=== PATIENT | female | born 1950 | race Two or more races ===

== ENCOUNTER 2017-01-12 07:37 | Emergency (ER) | payer OTHER ==
[~2017-01-12] VITALS: Ht 144.8 cm; Wt 46.3 kg
[~2017-01-12 07:37] MED LIST: DILT60CA; HYDR500T13; LEVO100T8; LORA1TAB12; PROVENTIL; SIMV-13
[2017-01-12 08:34] LABS: Basophils # (auto) 0 uL; Basophils % (auto) 0.6 % (0.0-2.0); CONDITION Y; Eosinophils # (auto) 0.1 uL; Eosinophils % (auto) 1.2 % (0.0-7.0); Hematocrit 46.7 % (36.0-46.0); Hemoglobin 15.6 g/dL (12.2-16.2); Lymphocytes # (auto) 1.5 uL; Lymphocytes % (auto) 30.1 % (10.0-50.0); Mean Corpuscular Hemoglobin 29.7 pg (28.0-32.0); Mean Corpuscular Hgb Conc. 33.4 g/dL (32.0-36.0); Mean Corpuscular Volume 89.1 fL (80.0-100.0); Mean Platelet Volume 8.7 fL (7.4-10.4); Monocytes # (auto) 0.4 uL; Monocytes % (auto) 7.8 % (0.0-12.0); Neutrophils % (auto) 60.3 % (37.0-80.0); Platelet Count (auto) 199 10^3/uL (140-450); Red Cell Distribution Width 14.5 % (11.6-16.0)
[2017-01-12 08:58] LABS: Albumin 3.7 g/dL (3.4-5.0); Alkaline Phosphatase 89 U/L (45-117); Anion Gap 7 (5-15); Aspartate Aminotransferase 25 U/L (15-37); BUN/Creatinine Ratio 19.7; Bilirubin, Total 0.4 mg/dL (0.2-1.0); Blood Urea Nitrogen 12 mg/dL (7-18); Calcium 8.5 mg/dL (8.5-10.1); Carbon Dioxide 29 mmol/L (21-32); Chloride 103 mmol/L (98-107); GFR African American 126 mL/min; GFR Non-African American 104 mL/min; Glucose 94 mg/dL (74-106); Magnesium 2.5 mg/dL (1.6-2.6); Potassium 3.8 mmol/L (3.5-5.1); Sodium 139 mmol/L (136-145); Total Protein 6.8 g/dL (6.4-8.2)
[2017-01-12] MEDS ORDERED: LORazepam 0.5 MG TAB PO ONE (09:45)
[2017-01-12] MEDS ORDERED: ASPirin 81 mg TAB PO ONE (09:45)
[2017-01-12 11:26] VITALS: BP 120/72
== END 2017-01-12 11:31 | disposition home or self-care (01) ==
LOC: ER 07:38
DX: R07.89 Other chest pain (principal); M54.2 Cervicalgia; M54.6 Pain in thoracic spine; R06.02 Shortness of breath; R42 Dizziness and giddiness; J45.909 Unspecified asthma, uncomplicated; E78.5 Hyperlipidemia, unspecified; F41.9 Anxiety disorder, unspecified; Z88.5 Allergy status to narcotic agent
CPT/HCPCS: 36415; 71020; 80053; 83735; 84484; 85025; 93005; 94761

== ENCOUNTER 2017-02-08 17:52 | Emergency (ER) | payer OTHER ==
[~2017-02-08] VITALS: Ht 144.8 cm; Wt 46.3 kg
[2017-02-08 18:01] VITALS: BP 99/55
[2017-02-08] MEDS ORDERED: IBUPROFEN 600 MG TAB PO ONE (21:30)
== END 2017-02-08 21:25 | disposition home or self-care (01) ==
LOC: ER 18:02
DX: R51 Headache (principal); J45.909 Unspecified asthma, uncomplicated; E78.5 Hyperlipidemia, unspecified; E07.9 Disorder of thyroid, unspecified
CPT/HCPCS: 70450

== ENCOUNTER 2017-03-02 10:54 | Emergency (ER) | payer OTHER ==
[~2017-03-02] VITALS: Ht 144.8 cm; Wt 47.2 kg
[2017-03-02 11:36] VITALS: BP 153/72
[2017-03-02] MEDS ORDERED: KETOROLAC TROMETH 60MG/2ML VIAL IM ONE (13:15)
== END 2017-03-02 13:51 | disposition home or self-care (01) ==
LOC: ER 10:54
DX: R51 Headache (principal); J45.909 Unspecified asthma, uncomplicated; E78.5 Hyperlipidemia, unspecified; E07.9 Disorder of thyroid, unspecified
CPT/HCPCS: 96372; 99283; J1885

== ENCOUNTER 2019-04-10 15:16 | Inpatient (IN) | payer OTHER ==
[~2019-04-10] VITALS: Ht 144.8 cm; Wt 55.6 kg
[2019-04-10 15:51] LABS: Basophils # (auto) 0.1 uL; Basophils % (auto) 0.7 % (0.0-2.0); Eosinophils # (auto) 0 uL; Eosinophils % (auto) 0.1 % (0.0-7.0); Hematocrit 44.4 % (36.0-46.0); Hemoglobin 15.5 g/dL (12.2-16.2); Lymphocytes # (auto) 0.9 uL; Lymphocytes % (auto) 8.5 % (10.0-50.0); Mean Corpuscular Hemoglobin 32.2 pg (28.0-32.0); Mean Corpuscular Hgb Conc. 34.8 g/dL (32.0-36.0); Mean Corpuscular Volume 92.6 fL (80.0-100.0); Monocytes # (auto) 0.5 uL; Monocytes % (auto) 4.9 % (0.0-12.0); Neutrophils # (auto) 8.9 uL; Neutrophils % (auto) 85.8 % (37.0-80.0); Platelet Count (auto) 173 10^3/uL (140-450); Red Cell Distribution Width 14.8 % (11.8-14.3); White Blood Cell 10.4 10^3/uL (4.4-10.8)
[2019-04-10 16:01] LABS: Alanine Aminotransferase 23 U/L (13-56); Albumin 4.3 g/dL (3.4-5.0); Amylase 75 U/L (25-115); Anion Gap 12 (5-15); Aspartate Aminotransferase 26 U/L (15-37); BUN/Creatinine Ratio 17.4; Blood Urea Nitrogen 12 mg/dL (7-18); Calcium 8.6 mg/dL (8.5-10.1); Carbon Dioxide 23 mmol/L (21-32); Chloride 98 mmol/L (98-107); GFR African American 108 mL/min; GFR Non-African American 90 mL/min; Glucose 157 mg/dL (74-106); Lipase 107 U/L (73-393); Potassium 3.1 mmol/L (3.5-5.1); Sodium 133 mmol/L (136-145)
[2019-04-10 16:06] LABS: Alkaline Phosphatase 94 U/L (45-117); Bilirubin, Total 0.7 mg/dL (0.2-1.0); Total Protein 7.7 g/dL (6.4-8.2)
[2019-04-10 16:20] LABS: Urine WBC None Seen /hpf (0 - 5)
[2019-04-10 16:29] LABS: Urine Amorphous Crystal FEW /hpf (None Seen); Urine Bacteria NONE SEEN /hpf (None Seen); Urine Blood 1+ /uL (Negative)
[2019-04-10] MEDS ORDERED: SODIUM CHLORIDE 0.9% 1,000 ML IVB ONE (16:41)
[2019-04-10] MEDS ORDERED: ONDANSETRON HCL 4 MG/2 ML VIAL IV ONE ×2 (16:45)
[2019-04-10] MEDS ORDERED: MORPHINE SULF INJ 2 MG/ML SYRINGE 1ML IV ONE (16:45)
[2019-04-10] MEDS ORDERED: cefTRIAXone 1GM/50ML D5W 50 ML IV ONE (17:00)
[2019-04-10] MEDS ORDERED: metroNIDAZOLE 500MG/100ML 100 ML IV ONE (17:00)
[2019-04-10] MEDS: POTASSIUM CHL 20MEQ/100ML 100 ML IV SCH ×2 (18:21→21:09)
[2019-04-10] MEDS ORDERED: HYDROmorphone HCL 2 MG/ML VL IV ONE ×3 (18:30)
[2019-04-10] MEDS ORDERED: MORPHINE SULF INJ 2 MG/ML SYRINGE 1ML IV PRN (18:30)
[2019-04-10] MEDS ORDERED: NITROGLYCERIN 0.4 MG SL TAB SL PRN (18:30)
[2019-04-10] MEDS: SOD CHL 0.9%/ KCL 20MEQ 1,000 ML IV SCH (18:47)
--- NOTE | 2019-04-10 20:06 | NUR ---
Respiratory note: ASSESSED PT FOR PRN MED NEB TX. PT IS CURRENTLY ON 3 L/M NC: HR 72, RR 12, SPO2 100%. PT SHOWS NO S/S OF SOB OR DISTRESS. MED NEB TX NOT INDICATED AT THIS TIME. INFORMED PT TO CALL FOR RESPIRATORY IF SOB OCCURS. WILL CONTINUE TO MONITOR.
--- NOTE | 2019-04-10 20:30 | NUR ---
Telemetry admit from [facility] M[facility]DEZ admitted to Telemetry unit. Patient is A&O X's 4 with no s/s of distress. Patient appears drowsy but is responsive to voice and can answer all questions appropriately. Patient has a NG tube to the left nare. Verified placement by auscultation and ordered XRAY. Will wait for XRAY results before starting on LCS. Patient is aware of the place. Patient is reporting some nausea at this time, will medicate as ordered. Patient's tele box 51. Patient's daughter is at bedside. Patient oriented to ROSA STEPHEN, RN primary RN, unit, room, bed, and unit policies regarding patient care and visiting hours. All questions and concerns addressed, patient verbalized understanding. Bed is in lowest/locked position with side rails up X's 2 and call light is within reach of patient. Educated patient to call before ambulating by herself. Will set bed alarm for safety and continue care.
--- NOTE | 2019-04-10 21:13 | NUR ---
EMESIS Patient vomited about 100cc of clear emesis. Will medicate as ordered. Patient shows no distress. HOB still remains elevated for aspirations precautions.
[2019-04-10] MEDS: PROMETHAZINE HCL 25 MG/ML 1ML IV PRN (21:18)
[2019-04-10] MEDS ORDERED: FAMOTIDINE (10MG/ML) 2ML VL IV SCH (22:00)
[2019-04-10] MEDS ORDERED: PNEUMOCOCCAL VACC POLYS 25 MCG/0.5 ML VIAL IM ONE (22:00)
[2019-04-10] MEDS ORDERED: SIMV40TA96 PO (22:04)
[2019-04-10] MEDS ORDERED: MECL-87 PO (22:04)
[2019-04-10] MEDS ORDERED: MAGN500T12 PO (22:04)
[2019-04-10] MEDS ORDERED: MELO-61 PO (22:04)
[2019-04-10] MEDS ORDERED: LEVO150T68 PO (22:04)
[2019-04-10] MEDS ORDERED: BACL10TA PO (22:04)
[2019-04-10] MEDS ORDERED: CHOL20007 PO (22:04)
[2019-04-10 22:06] VITALS: BP 163/82
--- NOTE | 2019-04-10 22:46 | NUR ---
NG STARTED ON LCS After confirming placement by auscultation and by XRAY, NG to left nare was now started to LCS as ordered. Patient is resting in bed, with no s/s of distress or discomfort noted. Will continue care.
[2019-04-10] MEDS: metroNIDAZOLE 500MG/100ML 100 ML IV SCH (23:00)
[2019-04-11] VITALS (7 sets, daily range): BP systolic 105–164; BP diastolic 55–89
--- NOTE | 2019-04-11 02:35 | NUR ---
ROUNDS Patient laying in bed with eyes closed. Patient reports feeling better. No s/s of distress or discomfort seen. HOB elevated and NG to LCS. No output noted yet.
[2019-04-11] MEDS: SOD CHL 0.9%/ KCL 20MEQ 1,000 ML IV SCH ×4 (03:36→21:01)
[2019-04-11] MEDS: metroNIDAZOLE 500MG/100ML 100 ML IV SCH ×3 (05:21→21:02)
[2019-04-11 06:08] LABS: Basophils # (auto) 0 uL; Basophils % (auto) 0.1 % (0.0-2.0); Eosinophils # (auto) 0 uL; Eosinophils % (auto) 0.1 % (0.0-7.0); Hematocrit 44.2 % (36.0-46.0); Hemoglobin 14.8 g/dL (12.2-16.2); Lymphocytes % (auto) 12.5 % (10.0-50.0); Mean Corpuscular Hemoglobin 32.5 pg (28.0-32.0); Mean Corpuscular Hgb Conc. 33.6 g/dL (32.0-36.0); Mean Corpuscular Volume 96.8 fL (80.0-100.0); Monocytes # (auto) 0.4 uL; Monocytes % (auto) 5.1 % (0.0-12.0); Neutrophils # (auto) 6.4 uL; Neutrophils % (auto) 82.2 % (37.0-80.0); Nucleated Red Blood Cells % 0.1 %; Platelet Count (auto) 153 10^3/uL (140-450); Red Blood Cells 4.56 10^6/uL (4.0-5.20); White Blood Cell 7.8 10^3/uL (4.4-10.8)
[2019-04-11 06:26] LABS: Potassium 4.2 mmol/L (3.5-5.1)
[2019-04-11 06:34] LABS: Albumin 3.5 g/dL (3.4-5.0); BUN/Creatinine Ratio 14.3; Calcium 7.1 mg/dL (8.5-10.1)
[2019-04-11 06:37] LABS: Bilirubin, Total 0.6 mg/dL (0.2-1.0); Total Protein 6.5 g/dL (6.4-8.2)
--- NOTE | 2019-04-11 06:40 | NUR ---
NG DRAINAGE Very scant amount of clear fluid was drained from NG tube over night. About or less than 50ml in canister.
--- NOTE | 2019-04-11 06:41 | NUR ---
END OF SHIFT NOTE Patient resting in bed with no s/s of distress or discomfort. NG remains in left nares and connected to LCS as ordered.
--- NOTE | 2019-04-11 07:09 | NUR ---
Respiratory note: PRN MED NEB TX NOT INDICATED AT THIS TIME. PT FOUND ON ROOM AIR HR 65 SPO2 94 BS CLEAR RR 16 NO SIGNS OR SYMPTOMS OF RESPIRATORY DISTRESS NOTED. PT INFORMED TO HIT CALL BUTTON IF FEELING SOB, COUGH OR WHEEZING.
--- NOTE | 2019-04-11 07:32 | NUR ---
Opening Shift Note Assumed care of patient. Patient is awake, alert, oriented and able to make needs known. Patient is connected to NG to the left nare connected to continuous low suction. Patient also has 0.9 NaCl with 20 Meq running on the right forearm. No S/S of distress/SOB noted. Insructed on POC. Will continue to montitor.
[2019-04-11] MEDS: HYDROmorphone HCL 2 MG/ML VL IV PRN ×2 (08:44→18:07)
[2019-04-11] MEDS ORDERED: GASTROGRAFIN 120 ML SOL ONE (08:44)
--- NOTE | 2019-04-11 08:50 | NUR ---
ECHO ECHO done at bedside.
--- NOTE | 2019-04-11 09:33 | NUR ---
Progress Note Patient transported downstairs for small bowel x-ray series.
[2019-04-11] MEDS ORDERED: LEVOFLOXACIN 500MG 100 ML IV SCH (10:00)
[2019-04-11] MEDS: PROMETHAZINE HCL 25 MG/ML 1ML IV PRN ×3 (10:13→18:08)
--- NOTE | 2019-04-11 10:24 | NUR ---
Progress Note Patient back from small bowel x-ray series. Due medications administered. No signs/symptoms of distress noted. Will continue to monitor.
[2019-04-11] MEDS ORDERED: FAMOTIDINE (10MG/ML) 2ML VL IV ONE (11:15)
--- NOTE | 2019-04-11 11:37 | NUR ---
Progress Note Dr. Vasquez and Ricardo ESTES PA at bedside at this time. Explained plan of care to patient, patient verbalized understanding. Patient had episode of emesis x1 approximately 300ml.
--- NOTE | 2019-04-11 15:54 | NUR ---
IV removal IV DC'd with clean sterile technique, catheter fully intact. Pressure dressing applied to site. Patient tolerated well. NOTE:
--- NOTE | 2019-04-11 16:00 | NUR ---
patient has vomited a total of 800 ml
--- NOTE | 2019-04-11 16:04 | NUR ---
NG TUBE PATIENT SNEEZED AND NG TUBE FELL OUT.
--- NOTE | 2019-04-11 17:00 | NUR ---
Nasogastric tube insertion Patient educated on need for NG tube. All questions addressed. NGT inserted per MD order. Placement verified by aspiration of stomach contents, auscultation and chest xray.
--- NOTE | 2019-04-11 18:51 | NUR ---
patient is on LCS patients output is 250 ml
--- NOTE | 2019-04-11 19:30 | NUR ---
RECEIVED PATIENT IN BED, AAOX4. NO DISTRESS NOTED. FAMILY IS WITH PATIENT. INTRODUCED MYSELF TO THE PATIENT. DENIES SOB, PAIN NOW. PATIENT HAS NGT CONNECTED TO LCS DRAINING INTO GREENISH GASTRIC OUTPUT. MILD BLE WEAKNESS NOTED. POCS DISCUSSED WITH PATIENT AND FAMILY AND SHOWED UNDERSTANDING. BED KEPT ON LOWEST POSITION. SIDE RAILS UP. CALL LIGHT/TABLE IN REACH. KEPT COMFORTABLE.
--- NOTE | 2019-04-11 19:35 | NUR ---
Respiratory note:PT ASSESSED FOR PRN MED NEB TX. PT IS CURRENTLY ON R/A HR 60, RR 16, SPO2 94%. PT SHOWS NO S/S OF SOB OR DISTRESS. MED NEB TX NOT INDICATED AT THIS TIME. INFORMED PT TO CALL FOR RESPIRATORY IF SOB OCCURS. WILL CONTINUE TO MONITOR.
--- NOTE | 2019-04-12 01:30 | NUR ---
NGT ACCIDENTALLY GOT PULLED OUT WHILE CHANGING THE CANISTER. NGT INSERTED ON THE LEFT NARES AND IS CONNECTED TO A CANISTER ON LCS DRAINING INTO GREEN GASTRIC OUTPUT. PLACEMENT WAS CHECKED AND IS IN THE STOMACH. NOTED.
[2019-04-12] MEDS: SOD CHL 0.9%/ KCL 20MEQ 1,000 ML IV SCH ×3 (02:15→21:22)
[2019-04-12] MEDS: HYDROmorphone HCL 2 MG/ML VL IV PRN ×2 (02:15→16:28)
[2019-04-12] MEDS: PROMETHAZINE HCL 25 MG/ML 1ML IV PRN ×2 (02:15→16:27)
[2019-04-12 05:31] VITALS: BP 157/72
[2019-04-12] MEDS: metroNIDAZOLE 500MG/100ML 100 ML IV SCH ×3 (05:31→21:22)
[2019-04-12 06:00] VITALS: BP 152/75
--- NOTE | 2019-04-12 06:31 | NUR ---
ON BED, ASLEEP. STABLE. NO DISTRESS NOTED. FOR MORE CARE AND MANAGEMENT.
[2019-04-12] MEDS: ALBUTEROL SULF 2.5 MG/0.5ML(0.5%) NEB SOLN NEB PRN (07:12)
[2019-04-12] MEDS: IPRATROPIUM BROM 0.5 MG/2.5ML INH SOL NEB PRN (07:12)
--- NOTE | 2019-04-12 07:24 | NUR ---
Opening Shift Note Assumed care of patient. Patient is awake, alert and resting in bed. No S/S of distress/SOB noted. Patient denies pain or nausea. No complains of emesis this morning. Patient has NG tube to the right nare, connected to low continuous suction. Instructed patient on plan of care and to call for assistance as needed. Will continue to monitor
[2019-04-12 09:18] VITALS: BP 109/74
[2019-04-12] MEDS: FAMOTIDINE (10MG/ML) 2ML VL IV SCH (10:38)
[2019-04-12] MEDS: LEVOFLOXACIN 250MG 50 ML IV SCH (10:38)
--- NOTE | 2019-04-12 12:44 | NUR ---
Dr. Vasquez at bedside at this time. Explained plan of care to patient.
[2019-04-12 13:00] VITALS: BP 154/79
--- NOTE | 2019-04-12 14:05 | NUR ---
Progress Note Patient is resting in bed with family at bedside. Denies pain or nausea at this time. Administered due medications. Will continue to monitor.
--- NOTE | 2019-04-12 16:13 | NUR ---
Received a consult for patient requesting information about an advanced directive. Patient was given the information at bedside. Addendum: 04/12/19 at 1618 by ARUNA ESTEVES SS Amended: Links added.
[2019-04-12 17:22] VITALS: BP 158/87
--- NOTE | 2019-04-12 19:40 | NUR ---
RECEIVED PATIENT IN BED, AAOX4. NO DISTRESS NOTED. INTRODUCED MYSELF TO THE PATIENT. DENIES SOB, PAIN NOW. PATIENT APPEARED RESTED. PATIENT HAS NGT CONNECTED TO LCS DRAINING INTO GREENISH GASTRIC OUTPUT. MILD BLE WEAKNESS NOTED. POCS DISCUSSED WITH PATIENT AND FAMILY AND SHOWED UNDERSTANDING. PATIENT CLAIMED THAT SHE HAD BOWEL MOVEMENT TODAY. MD IS AWARE. BED KEPT ON LOWEST POSITION. SIDE RAILS UP. CALL LIGHT/TABLE IN REACH. KEPT COMFORTABLE.
[2019-04-12 22:00] VITALS: BP 144/74
--- NOTE | 2019-04-13 04:00 | NUR ---
IV SITE IS LEAKING. REMOVED AND STARTED A NEW IV ACCESS ON THE RIGHT FOREARM, GAUGE 22. BENIGN AND PATENT.
[2019-04-13] MEDS: SOD CHL 0.9%/ KCL 20MEQ 1,000 ML IV SCH ×3 (04:10→21:30)
[2019-04-13] MEDS: HYDROmorphone HCL 2 MG/ML VL IV PRN ×2 (04:10→22:58)
[2019-04-13] MEDS: PROMETHAZINE HCL 25 MG/ML 1ML IV PRN ×2 (04:11→22:58)
[2019-04-13] MEDS: metroNIDAZOLE 500MG/100ML 100 ML IV SCH ×3 (05:35→21:30)
[2019-04-13 05:54] VITALS: BP 150/85
--- NOTE | 2019-04-13 06:26 | NUR ---
ON BED, ASLEEP. STABLE. NO DISTRESS NOTED. FOR MORE CARE AND MANAGEMENT.
[2019-04-13 09:00] VITALS: BP 144/91
[2019-04-13] MEDS: ALBUTEROL SULF 2.5 MG/0.5ML(0.5%) NEB SOLN NEB PRN (09:42)
[2019-04-13] MEDS: IPRATROPIUM BROM 0.5 MG/2.5ML INH SOL NEB PRN (09:43)
--- NOTE | 2019-04-13 11:49 | NUR ---
NGT removal NGT removed per MD/MARKETING PROGRAM MANAGER order following explanation and instruction to patient. Patient verbalized understanding prior to removal. Patient tolerated well.
[2019-04-13 12:00] VITALS: BP 153/81
[2019-04-13] MEDS: LEVOFLOXACIN 250MG 50 ML IV SCH (12:39)
[2019-04-13] MEDS: FAMOTIDINE (10MG/ML) 2ML VL IV SCH (12:39)
--- NOTE | 2019-04-13 14:09 | NUR ---
Estimated needs based on CBW 50 kg-increased for potential for weight loss, geriatric needs 5595-7529 kcal (25-30 kcal/kg) 50-60 g protein (1.0-1.2 g/kg) Addendum: 04/13/19 at [address] Amended: Links added.
[2019-04-13 17:00] VITALS: BP 160/90
--- NOTE | 2019-04-13 19:35 | NUR ---
Opening Shift Note Assumed care of patient, awake and alert. No S/S of distress/SOB or pain. Bed locked in lowest position, side rails upx2, call light within reach. Instructed on POC and to call for assist PRN, will continue to monitor for changes Q1hr and PRN.
[2019-04-13 21:11] VITALS: BP 160/90
[2019-04-13 22:27] VITALS: BP_SYST 135; BP_SYST 170; BP_DIAS 81; BP_DIAS 84
[2019-04-14 05:24] VITALS: BP 151/90
[2019-04-14] MEDS: SOD CHL 0.9%/ KCL 20MEQ 1,000 ML IV SCH (05:50)
[2019-04-14] MEDS: metroNIDAZOLE 500MG/100ML 100 ML IV SCH (06:29)
--- NOTE | 2019-04-14 08:38 | NUR ---
CALLED LAB, SPOKE TO REGINALD, REQUESTED LAB ORDERS STAT. REGINALD SAID THEY WOULD DRAW LABS RIGHT AWAY.
[2019-04-14 09:00] VITALS: BP 150/76
[2019-04-14 09:07] LABS: Basophils # (auto) 0 uL; Basophils % (auto) 0.5 % (0.0-2.0); Eosinophils # (auto) 0.1 uL; Hematocrit 45.2 % (36.0-46.0); Hemoglobin 15.6 g/dL (12.2-16.2); Lymphocytes # (auto) 1.4 uL; Lymphocytes % (auto) 20.3 % (10.0-50.0); Mean Corpuscular Hemoglobin 32.5 pg (28.0-32.0); Mean Corpuscular Hgb Conc. 34.5 g/dL (32.0-36.0); Monocytes # (auto) 0.6 uL; Monocytes % (auto) 8.3 % (0.0-12.0); Neutrophils # (auto) 4.8 uL; Neutrophils % (auto) 69.9 % (37.0-80.0); Platelet Count (auto) 146 10^3/uL (140-450); Red Blood Cells 4.81 10^6/uL (4.0-5.20); Red Cell Distribution Width 14.7 % (11.8-14.3); White Blood Cell 6.9 10^3/uL (4.4-10.8)
[2019-04-14 09:28] LABS: BUN/Creatinine Ratio 9.2; Calcium 8.1 mg/dL (8.5-10.1); Potassium 3.6 mmol/L (3.5-5.1)
[2019-04-14] MEDS: FAMOTIDINE (10MG/ML) 2ML VL IV SCH (10:22)
[2019-04-14] MEDS: LEVOFLOXACIN 250MG 50 ML IV SCH (10:22)
--- NOTE | 2019-04-14 10:43 | NUR ---
PROVIDED PATIENT SANDWICH PER DOC. AGUILAR. PATIENT IS ON A REGULAR DIET. WILL WATCH FOR S/S OF PAIN, NAUSEA, VOMITING.
--- NOTE | 2019-04-14 10:43 | NUR ---
PATIENT REFUSED PNEUMO VACCINE AFTER FINDING OUT IT WAS AN INJECTION. PATIENT STATES SHE WILL RECEIVE INJ. AT A LATER TIME WHEN SHE FEELS BETTER
--- NOTE | 2019-04-14 12:11 | NUR ---
Discharge instructions given as ordered. Patient stated she was able to eat sandwich without incident. Encouraged to follow up with PCP as instructed. Patient and daughter educated to come back if s/s of bleeding from bowel or stomach arise; patient/ daughter educated on s/s. All questions and concerns addressed. Patient verbalized understanding. IV removed with catheter intact, pressure dressing applied. Telemetry unit returned to Tele unit. Patient taken to vehicle via wheelchair with all personal belongings, accompanied by staff and family member. No distress noted at time of departure.
== END 2019-04-14 12:00 | disposition home or self-care (01) | DRG 392 ==
LOC: ER 15:16 → EDBD 15:16 → TELE 15:17 → TELE-WESTW 20:52
PROVIDERS: ADMIT Nurse Practitioner Acute Care; ATTEND Internal Medicine
DX: K52.9 Noninfective gastroenteritis and colitis, unspecified (principal); E87.1 Hypo-osmolality and hyponatremia; I10 Essential (primary) hypertension; J45.909 Unspecified asthma, uncomplicated; E03.9 Hypothyroidism, unspecified; F41.9 Anxiety disorder, unspecified; E78.00 Pure hypercholesterolemia, unspecified; E78.5 Hyperlipidemia, unspecified; I08.0 Rheumatic disorders of both mitral and aortic valves; F12.90 Cannabis use, unspecified, uncomplicated; E87.6 Hypokalemia; Z88.5 Allergy status to narcotic agent; Z28.21 Immunization not carried out because of patient refusal; Z83.3 Family history of diabetes mellitus; Z82.49 Family history of ischemic heart disease and other diseases of the circulatory system; Z80.0 Family history of malignant neoplasm of digestive organs; Z79.899 Other long term (current) drug therapy
CPT/HCPCS: 36415; 71045; 74018; 74176; 74250; 80048; 80053; 81001; 82150; 83036; 83690; 83735; 84443; 84484; 85025; 93005; 93306; 94640; 94761; 96365; 96368; 96375; G0378; J0696; J1956; J2405; J3480; J3490

== ENCOUNTER 2019-04-14 15:32 | Inpatient (IN) | payer OTHER ==
[~2019-04-14] VITALS: Ht 144.8 cm; Wt 55.4 kg
[~2019-04-14 15:32] MED LIST changes: +BACL10TA PO; +CHOL20007 PO; +LEVO150T68 PO; +MAGN500T12 PO; +MECL-87 PO; +MELO-61 PO; +SIMV40TA96 PO
[2019-04-14] MEDS ORDERED: PANTOPRAZOLE 40 MG/10 ML VIAL INJ IV ONE (16:30)
[2019-04-14] MEDS ORDERED: ONDANSETRON HCL 4 MG/2 ML VIAL IV ONE (16:30)
[2019-04-14] MEDS ORDERED: MORPHINE SULF INJ 2 MG/ML SYRINGE 1ML IV ONE (16:30)
[2019-04-14 16:40] LABS: Basophils # (auto) 0 uL; Basophils % (auto) 0.3 % (0.0-2.0); Eosinophils # (auto) 0 uL; Eosinophils % (auto) 0.3 % (0.0-7.0); Hematocrit 43.7 % (36.0-46.0); Hemoglobin 14.9 g/dL (12.2-16.2); Lymphocytes # (auto) 1.1 uL; Lymphocytes % (auto) 16.4 % (10.0-50.0); Mean Corpuscular Hemoglobin 32.4 pg (28.0-32.0); Mean Corpuscular Volume 95.3 fL (80.0-100.0); Monocytes # (auto) 0.7 uL; Monocytes % (auto) 10.1 % (0.0-12.0); Neutrophils # (auto) 4.8 uL; Neutrophils % (auto) 72.9 % (37.0-80.0); Platelet Count (auto) 134 10^3/uL (140-450); Red Blood Cells 4.59 10^6/uL (4.0-5.20); Red Cell Distribution Width 14.8 % (11.8-14.3); White Blood Cell 6.6 10^3/uL (4.4-10.8)
[2019-04-14 16:51] LABS: Albumin 3.6 g/dL (3.4-5.0); BUN/Creatinine Ratio 11.9; Calcium 8.3 mg/dL (8.5-10.1); Potassium 3.4 mmol/L (3.5-5.1)
[2019-04-14 16:53] LABS: Bilirubin, Total 0.7 mg/dL (0.2-1.0); Total Protein 6.5 g/dL (6.4-8.2)
[2019-04-14 17:09] LABS: Urine Bacteria NONE SEEN /hpf (None Seen); Urine Blood TRACE /uL (Negative); Urine Mucus FEW (None Seen); Urine Specific Gravity 1.005 (1.001-1.035); Urine WBC <1 /hpf (0 - 5)
[2019-04-14] MEDS ORDERED: POTASSIUM EFFERVESENT TAB 25 MEQ PO ONE (17:30)
[2019-04-14] MEDS ORDERED: LORazepam 2MG/ML-1ML VIAL IV PRN (19:00)
[2019-04-14] MEDS ORDERED: hydrALAZINE HCL 20 MG/ML VL IV PRN (21:00)
[2019-04-14] MEDS: SODIUM CHLORIDE 0.9% 1,000 ML IV SCH (21:18)
[2019-04-14 21:24] LABS: Hematocrit 42.1 % (36.0-46.0); Hemoglobin 14.2 g/dL (12.2-16.2)
[2019-04-14] MEDS ORDERED: POTASSIUM CHL 20MEQ/100ML 100 ML IV ONE (21:30)
[2019-04-14 22:00] VITALS: BP 95/62
[2019-04-14] MEDS: FAMOTIDINE (10MG/ML) 2ML VL IV SCH (22:32)
--- NOTE | 2019-04-14 22:40 | NUR ---
MS admit from ER R[facility] MTOTA admitted to MS. Patient oriented to Kristina Boss, primary RN, unit, room, bed, and unit policies regarding patient care and visiting hours. Patient weighed by bedscale and encouraged to call if they need something. All questions and concerns addressed, patient verbalized understanding.
--- NOTE | 2019-04-15 | NUR ---
Hospitalist paged to verify orders regarding NGT. Awaiting for call back.
--- NOTE | 2019-04-15 00:15 | NUR ---
Call back received from hospitalist Nicholas Tierney NP. Order received to hook NGT to low intermittent suction. NGT hooked to low intermittent suction after verification of placement thru auscultation with another RN. Care continued.
[2019-04-15 05:00] VITALS: BP 151/88
--- NOTE | 2019-04-15 07:06 | NUR ---
Patient's daughter called, updated with patient's status after verification of password. All questions and concerns addressed. Patient's daughter verbalized understanding. Very little output from NGT, about 5cc. Patient has no complains at this time. Will give report to oncoming RN.
[2019-04-15 07:13] LABS: Basophils # (auto) 0 uL; Basophils % (auto) 0.2 % (0.0-2.0); Eosinophils # (auto) 0.1 uL; Eosinophils % (auto) 1.5 % (0.0-7.0); Hematocrit 43.9 % (36.0-46.0); Hemoglobin 14.7 g/dL (12.2-16.2); Lymphocytes # (auto) 0.9 uL; Lymphocytes % (auto) 19.9 % (10.0-50.0); Mean Corpuscular Hemoglobin 32.1 pg (28.0-32.0); Mean Corpuscular Hgb Conc. 33.6 g/dL (32.0-36.0); Mean Corpuscular Volume 95.6 fL (80.0-100.0); Monocytes # (auto) 0.6 uL; Monocytes % (auto) 13.1 % (0.0-12.0); Neutrophils # (auto) 3.1 uL; Neutrophils % (auto) 65.3 % (37.0-80.0); Platelet Count (auto) 131 10^3/uL (140-450); Red Blood Cells 4.59 10^6/uL (4.0-5.20); Red Cell Distribution Width 14.4 % (11.8-14.3); White Blood Cell 4.8 10^3/uL (4.4-10.8)
[2019-04-15 07:25] LABS: Potassium 3.4 mmol/L (3.5-5.1)
[2019-04-15 07:27] LABS: BUN/Creatinine Ratio 10.5; Calcium 7.7 mg/dL (8.5-10.1)
--- NOTE | 2019-04-15 07:54 | NUR ---
SPOKE TO FAMILY RECEIVED PHONE CALL FROM PATIENTS DAUGHTER. AFTER PASSWORD OBTAINED, UPDATED ON PT STATUS. VERBALIZED UNDERSTANDING.
--- NOTE | 2019-04-15 08:00 | NUR ---
OPENING NOTE ASSUMED CARE OF PATIENT AWAKE AND ALERT. NO S/S OF DISTRESS NOTED OR COMPLAINTS OF PAIN. NGT IN PLACE HOOKED UP TO LIS. PT UPDATED ON POC AND ALL QUESTIONS ANSWERED. BED IS IN LOWEST, LOCKED POSITION WITH SIDE RAILS UP X2, AND CALL LIGHT WITHIN REACH. WILL CONTINUE TO MONITOR Q1H AND PRN.
[2019-04-15 08:50] VITALS: BP 145/88
[2019-04-15] MEDS ORDERED: GASTROGRAFIN 120 ML SOL ONE (09:00)
--- NOTE | 2019-04-15 09:16 | NUR ---
OFF UNIT PT TAKEN OFF UNIT VIA WC. NO ACUTE DISTRESS NOTED AT TIME OF DEPARTURE.
[2019-04-15 09:36] LABS: INR 0.97 (0.9-1.15); Partial Thromboplastin Time 30.8 sec (23.64-32.05)
--- NOTE | 2019-04-15 10:09 | NUR ---
RADIOLOGY RECEIVED PHONE CALL FROM COVER OPERATORMALACHI. PATIENT C/O NAUSEA IN IMAGING. MEDICATED WITH PRN ZOFRAN. PER MALACHI, CXR PREVIOUSLY ORDERED WAS CANCELLED R/T SMALL BOWEL SERIES BEING ORDERED. PER RADIOLOGIST, NGT IN ADEQUATE POSITIONING AND DOES NOT NEED FURTHER ADVANCEMENT AT THIS TIME.
[2019-04-15] MEDS: ONDANSETRON HCL 4 MG/2 ML VIAL IV PRN ×3 (10:16→21:29)
--- NOTE | 2019-04-15 10:21 | NUR ---
SPOKE TO FAMILY RECEIVED PHONE CALL FROM PATIENTS DAUGHTER AGAIN. AFTER PASSWORD OBTAINED, UPDATED ON POC. VERBALIZED UNDERSTANDING.
--- NOTE | 2019-04-15 10:45 | NUR ---
RETURNED TO UNIT PT RETURNED TO UNIT. SMALL BOWEL SERIES COMPLETED. CLEARED TO BE PUT BACK ON LIS.
[2019-04-15] MEDS: SODIUM CHLORIDE 0.9% 1,000 ML IV SCH (10:57)
[2019-04-15] MEDS: FAMOTIDINE (10MG/ML) 2ML VL IV SCH (10:57)
[2019-04-15] MEDS: MORPHINE SULFATE 4 MG/ML SYR/VIAL IV PRN ×2 (10:58→17:04)
--- NOTE | 2019-04-15 11:10 | NUR ---
SPOKE TO MD SPOKE TO DR SANTIAGO REGARDING POSITIVE GASTRIC OCCULT RESULTS AND POTASSIUM LEVEL OF 3.4. ORDERS RECEIVED, READ BACK AND VERIFIED.
--- NOTE | 2019-04-15 11:11 | NUR ---
SURGICAL CONSENTS PT EXPRESSED HAVING NO FURTHER QUESTIONS IN REGARDS TO PLANNED PROCEDURE. CONSENTS SIGNED BY PATIENT.
[2019-04-15] MEDS ORDERED: POTASSIUM CHLORIDE 40 MEQ, LIDOCAINE 1% (LOCAL ANESTH.) 4 ML in SODIUM CHL 0.9% 100 ML IV ONE (11:15)
--- NOTE | 2019-04-15 12:32 | NUR ---
OFF UNIT PT TAKEN OFF UNIT VIA STRETCHER TO PRE-OP. CONSENTS PREVIOUSLY SIGNED BY PATIENT. SURGICAL CHECKLIST COMPLETED. DENTURES AND ALL JEWELRY REMOVED PRIOR TO DEPARTURE. GIVEN TO PATIENT DAUGHTERS AT BEDSIDE. PATENT IV TO LFA INFUSING NS PER MD ORDER. NO ACUTE DISTRESS NOTED AT TIME OF DEPARTURE.
[2019-04-15] MEDS ORDERED: ceFAZolin 1GM/50ML 50 ML IV ONE (12:38)
[2019-04-15] MEDS ORDERED: LIDOCAINE 1% (LOCAL ANESTH.) PF 5ml SDV ONE (12:59)
[2019-04-15] MEDS ORDERED: SUCCINYLCHOLINE CHLORIDE 20 MG/ML 10ML VIAL IV ONE (12:59)
[2019-04-15 13:00] VITALS: BP 149/91
[2019-04-15] MEDS ORDERED: PROPOFOL 10 MG/ML 20 ML IV ONE (13:02)
[2019-04-15] MEDS ORDERED: MIDAZOLAM HCL 1MG/1ML-2 ML VIAL ONE (13:02)
[2019-04-15] MEDS ORDERED: ROCURONIUM 10MG/ML 10ML VIAL IV ONE (13:04)
[2019-04-15] MEDS ORDERED: fentaNYL CITRATE 100 MCG/2 ML VL ONE (13:19)
[2019-04-15] MEDS ORDERED: SODIUM CHLORIDE LOCK 10 ML ONE (13:29)
[2019-04-15] MEDS ORDERED: ePHEDrine SULFATE 50 MG/ML AMP ONE (13:29)
[2019-04-15] MEDS ORDERED: ONDANSETRON HCL 4 MG/2 ML VIAL IV PRN (13:30)
[2019-04-15] MEDS ORDERED: HYDROmorphone HCL 2 MG/ML VL IV PRN (13:30)
[2019-04-15] MEDS ORDERED: NALOXONE HCL 0.4 MG/ML VIAL IV PRN (13:30)
[2019-04-15] MEDS ORDERED: POVIDONE IODINE 5% TOPICAL CREAM TOP ONE (13:56)
[2019-04-15] MEDS ORDERED: NEOSTIGMINE 1 MG/ML INJ (10mg/10ML VIAL) ONE (14:02)
[2019-04-15] MEDS ORDERED: GLYCOPYRROLATE 0.2 MG/ML 1ML VIAL ONE (14:02)
[2019-04-15] MEDS: HYDROmorphone HCL 2 MG/ML VL IV PRN ×3 (14:43→15:10)
--- NOTE | 2019-04-15 16:17 | NUR ---
RETURNED TO UNIT PT RETURNED TO UNIT FROM RECOVERY. PATIENT AO X 4, SLIGHTLY DROWSY, BUT ANSWERING QUESTIONS APPROPRIATELY. ABDOMINAL DRESSING ASSESSED, CDI. ABDOMINAL BINDER IN PLACE. COMPLETE LINEN CHANGE DONE. NGT PLACED ON LCS PER NEW MD ORDER. FAMILY AT BEDSIDE. NPO STATUS REINFORCED WITH PT/FAMILY. VERBALIZED UNDERSTANDING. CALL LIGHT WITHIN REACH. WILL CONTINUE TO MONITOR.
[2019-04-15 17:00] VITALS: BP 154/87
--- NOTE | 2019-04-15 21:09 | NUR ---
1914 Patient received resting on bed, no s/sx of distress noted. Midline incision intact with binder. 2044 Patient's daughter Diana called, informed her that patient is in stable condition. 2044 Patient awake and asking for ice chips, informed patient of NPO status. Incentive Spirometer instruction given to patient, able to do up to 1000ml.
[2019-04-15 22:00] VITALS: BP 145/84
[2019-04-16] MEDS: SODIUM CHLORIDE 0.9% 1,000 ML IV SCH (01:16)
--- NOTE | 2019-04-16 01:18 | NUR ---
Patient encouraged to ambulate, refused at this time. Patient said she will ambulate service worker.
[2019-04-16 05:00] VITALS: BP 146/89
--- NOTE | 2019-04-16 06:39 | NUR ---
Patient ambulated in hallway, tolerated well.
--- NOTE | 2019-04-16 08:10 | NUR ---
OPENING SHIFT NOTE ASSUMED CARE OF PT. PT IS AWAKE AND ALERT. NO SOB OR SIGNS OF DISTRESS NOTED. INSTRUCTED ON POC AND TO CALL FOR ASSISTANCE IF NEEDED. BED IN LOWEST POSITION WITH SIDE RAILS UP X2. WILL CONTINUE TO MONITOR.
[2019-04-16 09:00] VITALS: BP 147/78
[2019-04-16] MEDS: ONDANSETRON HCL 4 MG/2 ML VIAL IV PRN ×2 (11:24→18:39)
[2019-04-16] MEDS: FAMOTIDINE (10MG/ML) 2ML VL IV SCH (11:24)
[2019-04-16] MEDS: MORPHINE SULFATE 4 MG/ML SYR/VIAL IV PRN ×2 (11:25→18:39)
[2019-04-16] MEDS ORDERED: ENOXAPARIN SOD 40 MG/0.4 ML SYRINGE SC ONE (11:30)
[2019-04-16 12:21] LABS: Basophils # (auto) 0 uL; Basophils % (auto) 0.2 % (0.0-2.0); Eosinophils # (auto) 0 uL; Eosinophils % (auto) 0.5 % (0.0-7.0); Hematocrit 40.7 % (36.0-46.0); Hemoglobin 13.7 g/dL (12.2-16.2); Lymphocytes # (auto) 0.8 uL; Lymphocytes % (auto) 12.3 % (10.0-50.0); Mean Corpuscular Hemoglobin 32.3 pg (28.0-32.0); Mean Corpuscular Hgb Conc. 33.7 g/dL (32.0-36.0); Mean Corpuscular Volume 95.8 fL (80.0-100.0); Monocytes # (auto) 0.5 uL; Monocytes % (auto) 8.2 % (0.0-12.0); Neutrophils # (auto) 5.2 uL; Neutrophils % (auto) 78.8 % (37.0-80.0); Platelet Count (auto) 122 10^3/uL (140-450); Red Blood Cells 4.25 10^6/uL (4.0-5.20); Red Cell Distribution Width 15.2 % (11.8-14.3); White Blood Cell 6.6 10^3/uL (4.4-10.8)
[2019-04-16 12:37] VITALS: BP 153/85
[2019-04-16 12:55] LABS: Calcium 7.7 mg/dL (8.5-10.1); Potassium 3.8 mmol/L (3.5-5.1)
[2019-04-16 12:59] LABS: BUN/Creatinine Ratio 17.5; Bilirubin, Total 0.7 mg/dL (0.2-1.0); Total Protein 6.1 g/dL (6.4-8.2)
[2019-04-16] MEDS: D5W/ SOD CHL 0.9%/KCL 20MEQ 1,000 ML IV SCH (14:23)
--- NOTE | 2019-04-16 16:00 | NUR ---
PT REPORTED SUCTIONING COMING FROM NG TUBE. REQUESTED PORTABLE CHEST XRAY TO VERIFY PLACEMENT. WILL CONTINUE TO MONITOR.
[2019-04-16 16:52] VITALS: BP 151/85
--- NOTE | 2019-04-16 17:00 | NUR ---
REVIEWED XRAY. NG TUBE IN PLACE. WILL CONTINUE TO MONITOR.
[2019-04-16 21:42] VITALS: BP 130/97
[2019-04-17 05:25] VITALS: BP 142/75
[2019-04-17] MEDS: D5W/ SOD CHL 0.9%/KCL 20MEQ 1,000 ML IV SCH ×2 (06:11→23:27)
[2019-04-17 06:37] LABS: Basophils # (auto) 0 uL; Basophils % (auto) 0.5 % (0.0-2.0); Eosinophils # (auto) 0.2 uL; Eosinophils % (auto) 3.2 % (0.0-7.0); Hematocrit 40.1 % (36.0-46.0); Hemoglobin 13.5 g/dL (12.2-16.2); Lymphocytes # (auto) 1.1 uL; Lymphocytes % (auto) 18.5 % (10.0-50.0); Mean Corpuscular Hemoglobin 32.1 pg (28.0-32.0); Mean Corpuscular Hgb Conc. 33.6 g/dL (32.0-36.0); Mean Corpuscular Volume 95.6 fL (80.0-100.0); Monocytes # (auto) 0.5 uL; Monocytes % (auto) 8.6 % (0.0-12.0); Neutrophils # (auto) 3.9 uL; Neutrophils % (auto) 69.2 % (37.0-80.0); Platelet Count (auto) 128 10^3/uL (140-450); Red Cell Distribution Width 15.1 % (11.8-14.3); White Blood Cell 5.7 10^3/uL (4.4-10.8)
[2019-04-17 07:59] LABS: Potassium 3.5 mmol/L (3.5-5.1)
[2019-04-17 08:00] LABS: Calcium 7.7 mg/dL (8.5-10.1)
[2019-04-17 08:30] VITALS: BP 155/93
[2019-04-17] MEDS: ONDANSETRON HCL 4 MG/2 ML VIAL IV PRN ×2 (12:00→20:33)
[2019-04-17] MEDS: ENOXAPARIN SOD 40 MG/0.4 ML SYRINGE SC SCH (12:00)
[2019-04-17] MEDS: FAMOTIDINE (10MG/ML) 2ML VL IV SCH (12:00)
[2019-04-17] MEDS: MORPHINE SULFATE 4 MG/ML SYR/VIAL IV PRN ×2 (12:01→20:33)
[2019-04-17 13:00] VITALS: BP 142/82
[2019-04-17 17:18] VITALS: BP 155/86
--- NOTE | 2019-04-17 20:14 | NUR ---
Patient ambulated in hallways about 100 ft, tolerated well.
[2019-04-17 22:00] VITALS: BP 155/99
--- NOTE | 2019-04-18 05:01 | NUR ---
Patient ambulated in hallways about 200 ft., with slight fatigue.
[2019-04-18 05:33] VITALS: BP 151/86
[2019-04-18 08:40] VITALS: BP 138/86
[2019-04-18] MEDS: FAMOTIDINE (10MG/ML) 2ML VL IV SCH (09:49)
[2019-04-18] MEDS: ENOXAPARIN SOD 40 MG/0.4 ML SYRINGE SC SCH (09:49)
[2019-04-18] MEDS: MORPHINE SULFATE 4 MG/ML SYR/VIAL IV PRN ×2 (10:09→18:04)
[2019-04-18] MEDS: ONDANSETRON HCL 4 MG/2 ML VIAL IV PRN (10:09)
--- NOTE | 2019-04-18 13:26 | NUR ---
NUTRITION ASSESSMENT NOTES Please refer to link notes of nutrition screen form filed under the intervention section of the plan of care for further details. Est. Needs based on AdBW (63 kg): 1250 kcal to 1550 kcal (15-20 kcal/kgAdBW), 63 gms to 76 gms pro (1.0-1.2 gms/kgAdBW). Will continue to monitor pertinent labs and reassess nutrient need prn Thank you. Addendum: 04/18/19 at [address] Amended: Links added.
--- NOTE | 2019-04-18 14:44 | NUR ---
AMBULATED IN [address] STEADY GAIT. SHE TOLERATED CLEAR LIQUIDS WELL NGT CLAMPED AT THIS TIME.
[2019-04-18 17:03] VITALS: BP 132/76
--- NOTE | 2019-04-18 19:00 | NUR ---
Opening Shift Note Assumed care of patient, awake and alert. No S/S of distress/SOB or pain. Instructed on POC and to call for assist PRN, will continue to monitor for changes Q1hr and PRN.
[2019-04-18 22:00] VITALS: BP 146/75
[2019-04-18] MEDS: D5W/ SOD CHL 0.9%/KCL 20MEQ 1,000 ML IV SCH (23:18)
[2019-04-19] VITALS (7 sets, daily range): BP systolic 143–180; BP diastolic 75–103
[2019-04-19] MEDS: MORPHINE SULFATE 4 MG/ML SYR/VIAL IV PRN ×4 (00:30→21:16)
[2019-04-19] MEDS: ONDANSETRON HCL 4 MG/2 ML VIAL IV PRN ×4 (00:30→21:16)
[2019-04-19] MEDS: ENOXAPARIN SOD 40 MG/0.4 ML SYRINGE SC SCH (09:55)
[2019-04-19] MEDS: FAMOTIDINE (10MG/ML) 2ML VL IV SCH (09:55)
--- NOTE | 2019-04-19 10:05 | NUR ---
NGT removal NGT removed per MD/CASER SHOE [employer]S order following explanation and instruction to patient. Patient verbalized understanding prior to removal. Patient tolerated well.
--- NOTE | 2019-04-19 10:15 | NUR ---
MD LISSETT SANTIAGO AT BEDSIDE NO NEW ORDERS AT THIS TIME.
[2019-04-19] MEDS ORDERED: hydrALAZINE HCL 10 MG TAB PO PRN (10:30)
--- NOTE | 2019-04-19 15:02 | NUR ---
DARLYN EL REGARDING PT ANXIETY
--- NOTE | 2019-04-19 15:14 | NUR ---
RETURNED PAGE NEW ORDERS RECEIVED. Addendum: 04/19/19 at 1517 by JACKIE LANCE RN RN NEW ORDERS RECEIVED WITH ABDI
[2019-04-19] MEDS ORDERED: LORazepam 0.5 MG TAB PO PRN (15:15)
--- NOTE | 2019-04-19 15:22 | NUR ---
Assessment Pt is a 68 yr old female, alert and oriented. Pt admitted with Abdominal pain and intestinal obstruct. Prior to admit, pt lived alone but is planning on living with her daughter, Shanna Christian, who is her caregiver and emergency contact at [phone]. Pt ambulates with use of a walker or cane and uses a shower chair. Pt's daughter helps with whatever pt needs including cooking, cleaning, transportation, bathing, etc. Pt currently not utilizing services for . Pt's Primary is Dr Bobo. Pt has no interest in AD currently. Pt's daughter will transport her to her daughters house upon d/c. Pt stated that she feels safe going home with her daughter upon d/c. No other needs or concerns expressed at this time. Addendum: 04/19/19 at 1538 by MISTY RILEY SS Amended: Links added.
[2019-04-19 17:14] LABS: Urine Bacteria NONE SEEN /hpf (None Seen); Urine Blood TRACE /uL (Negative); Urine Mucus FEW (None Seen); Urine Specific Gravity 1.013 (1.001-1.035); Urine WBC 8 /hpf (0 - 5)
--- NOTE | 2019-04-19 20:15 | NUR ---
RECEIVED PATIENT IN BED, AAOX4. NO DISTRESS NOTED. INTRODUCED MYSELF TO THE PATIENT. ORIENTATION DONE. NO ACTIVE BLEEDING NOTED ON THE INCISION SITE. REAPPLIED THE BINDER. ABDOMEN IS ROUND WITH MILD DISTENTION. BOWEL SOUNDS NOTED. PATIENT CLAIMED TO HAVE PASSED FLATUS. MILD BLE WEAKNESS NOTED. ABLE TO TURN FROM SIDE TO SIDE. ENCOURAGED AMBULATION AND IS USE. MILD ABDOMINAL PAIN NOTED, BUT TOLERABLE AT THIS TIME. WILL FOLLOW UP. POCS DISCUSSED WITH PATIENT AND SHOWED UNDERSTANDING. BED KEPT ON LOWEST POSITION. SIDE RAILS UP. CALL LIGHT/TABLE IN REACH. KEPT COMFORTABLE.
[2019-04-19] MEDS: FAMOTIDINE 20 MG TAB PO SCH (21:15)
[2019-04-20 05:51] VITALS: BP_SYST 144; BP_SYST 157; BP_DIAS 69; BP_DIAS 81
[2019-04-20] MEDS: LEVOTHYROXINE SODIUM 50 MCG TAB PO SCH (06:23)
[2019-04-20] MEDS: ONDANSETRON HCL 4 MG/2 ML VIAL IV PRN ×2 (08:51→18:12)
[2019-04-20] MEDS: MORPHINE SULFATE 4 MG/ML SYR/VIAL IV PRN ×2 (08:52→18:12)
[2019-04-20 09:00] VITALS: BP 157/87
[2019-04-20] MEDS: ENOXAPARIN SOD 40 MG/0.4 ML SYRINGE SC SCH (09:26)
[2019-04-20] MEDS: FAMOTIDINE 20 MG TAB PO SCH ×2 (09:26→21:58)
[2019-04-20] MEDS: CHOLECALCIFEROL (VITD3) 1,000 UNIT TAB PO SCH (09:26)
[2019-04-20] MEDS: amLODIPine BESYLATE 5 MG TAB PO SCH (10:11)
--- NOTE | 2019-04-20 12:40 | NUR ---
Nutrition Follow-up Notes Wt.: 55.4 kg Pt was sleeping with no family by beside. per records pt s/p exp lap for adhesions. pt with no distress noted currently on soft diet with adequate PO of 75% x 4 per RN doc Est. Needs based on AdBW (63 kg): 1250 kcal to 1550 kcal (15-20 kcal/kgAdBW), 63 gms to 76 gms pro (1.0-1.2 gms/kgAdBW). Will continue to monitor pertinent labs and reassess nutrient need prn Labs: No new labs today 04/17: CA 7.7 L, ALB 3.0 L. Skin: Nas scale 21 low risk, pt's with incision on abdomen per branch store manager. GI: Pt had 2 BM yesterday per branch store manager. PES: Resolved: Inadequate PO intake r/t current medical condition aeb s/p surgery, mild hypoalbuminemia,NPO. Altered nutrition related lab values r/t current/chronic medical condition aeb low renal labs, hypocalcemia and mild hypoalbuminemia Obesity r/t excessive PO intake aeb 280% IBW, BMI 57.7 kg/m2 and increased body adiposity Will continue to monitor PO intake, skin status, pertinent labs and weight trend. F/u in 3-5 days. Rec.: 1.) Consider Cardiac: 2 gms Na, Low Chol, Low Fat diet 2.) If Albumin continues trending down, consider Prostat 1 pkt BID. 3.) Consider close supervision with meals. 4.) Refer to RD for further nutrition educ. and weight monitoring upon discharge. 5.) Continue current plan of care.
[2019-04-20 13:00] VITALS: BP 121/85
[2019-04-20 17:05] VITALS: BP 135/64
[2019-04-20 22:55] VITALS: BP 116/65
[2019-04-21 05:35] VITALS: BP 121/76
[2019-04-21] MEDS: LEVOTHYROXINE SODIUM 50 MCG TAB PO SCH (07:07)
[2019-04-21] MEDS ORDERED: HYDROcodone-ACET 5/325MG TAB PO PRN (08:30)
[2019-04-21] MEDS ORDERED: ATOR20TA50 PO (08:32)
[2019-04-21] MEDS ORDERED: AML5T PO (08:32)
[2019-04-21 09:00] VITALS: BP 119/85
[2019-04-21] MEDS: CHOLECALCIFEROL (VITD3) 1,000 UNIT TAB PO SCH (09:32)
[2019-04-21] MEDS: ENOXAPARIN SOD 40 MG/0.4 ML SYRINGE SC SCH (09:32)
[2019-04-21] MEDS: amLODIPine BESYLATE 5 MG TAB PO SCH (09:32)
[2019-04-21] MEDS: FAMOTIDINE 20 MG TAB PO SCH (09:32)
[2019-04-21 10:05] VITALS: BP 119/85
--- NOTE | 2019-04-21 14:11 | NUR ---
Discharge instructions given as ordered. Encourage to follow up with PMD(Follow up with Dr. Hernandez in 1-2 weeks Address : [address], [place], [address] [address][phone] Ext : [phone] . Follow up with Dr. Dave Ellis Address : [id number] [place] [address], [id number] #[phone] ) as instructed. All questions and concerns addressed. Patient verbalized understanding. Medication reconciliation form completed and copy given to patient. IV removed with catheter intact, pressure dressing applied. Patient taken to vehicle via wheelchair with all personal belongings, accompanied by staff and family member. No distress noted at time of departure.
== END 2019-04-21 14:15 | disposition home or self-care (01) | DRG 337 ==
LOC: ER 15:38 → OVERFLOW 15:39 → WEST WING 22:42
PROVIDERS: ADMIT Nurse Practitioner; ATTEND Internal Medicine
PROC: 0D9670Z Drainage of Stomach with Drainage Device, Via Natural or Artificial Opening (ICD-10-PCS; 2019-04-14)
PROC: 0DN80ZZ Release Small Intestine, Open Approach (ICD-10-PCS; principal; 2019-04-15 13:00)
DX: K56.51 Intestinal adhesions [bands], with partial obstruction (principal); J45.909 Unspecified asthma, uncomplicated; I10 Essential (primary) hypertension; F41.9 Anxiety disorder, unspecified; K29.70 Gastritis, unspecified, without bleeding; E87.6 Hypokalemia; E78.5 Hyperlipidemia, unspecified; E03.9 Hypothyroidism, unspecified; I70.0 Atherosclerosis of aorta; K52.9 Noninfective gastroenteritis and colitis, unspecified; Z88.5 Allergy status to narcotic agent; Z83.3 Family history of diabetes mellitus; Z82.49 Family history of ischemic heart disease and other diseases of the circulatory system; Z80.3 Family history of malignant neoplasm of breast; Z80.0 Family history of malignant neoplasm of digestive organs; Z79.899 Other long term (current) drug therapy
CPT/HCPCS: 36415; 71045; 74018; 74176; 74250; 80048; 80053; 81001; 82270; 82271; 85014; 85018; 85025; 85610; 85730; 86677; 86850; 86900; 86901; 87081; 93005; 96361; 96365; 96375; 97116; 97163; 97530; C9113; G0378; J0330; J0690; J2001; J2250; J2405; J2704; J3480; J3490

== ENCOUNTER 2020-10-09 08:22 | Inpatient (IN) | payer OTHER ==
[~2020-10-09] VITALS: Ht 144.8 cm; Wt 51.9 kg
[~2020-10-09 08:22] MED LIST changes: +AML5T PO; +ATOR20TA50 PO; -BACL10TA PO; -DILT60CA; -HYDR500T13; +LEV150T PO; -LEVO100T8; -LEVO150T68 PO; -LORA1TAB12; +LORA1TAB23; -MECL-87 PO; -MELO-61 PO; -SIMV-13; -SIMV40TA96 PO
[2020-10-09 09:08] LABS: Basophils # (auto) 0 10 ^3/uL (0-0.2); Eosinophils # (auto) 0.1 10 ^3/uL (0-0.8); Eosinophils % (auto) 1.1 % (0.0-7.0); Lymphocytes # (auto) 1.7 10 ^3/uL (0.4-5.4); Mean Corpuscular Hemoglobin 34.2 pg (28.0-32.0); Monocytes # (auto) 0.4 10 ^3/uL (0-1.3); Monocytes % (auto) 7.2 % (0.0-12.0); Neutrophils # (auto) 3.8 10 ^3/uL (1.6-8.6); Neutrophils % (auto) 63.2 % (37.0-80.0); Nucleated Red Blood Cells % 0.1 %
[2020-10-09 09:11] LABS: Basophils % (auto) 0.5 % (0.0-2.0); Hematocrit 43.6 % (36.0-46.0); Mean Corpuscular Hgb Conc. 34.3 g/dL (32.0-36.0); Mean Corpuscular Volume 99.7 fL (80.0-100.0); Platelet Count (auto) 158 10^3/uL (140-450); Red Blood Cells 4.37 10^6/uL (4.0-5.20); Red Cell Distribution Width 17.9 % (11.8-14.3)
[2020-10-09 09:23] LABS: Albumin 4.1 g/dL (3.4-5.0); Anion Gap 7 (5-15); Blood Urea Nitrogen 12 mg/dL (7-18); Calcium 8.6 mg/dL (8.5-10.1); Carbon Dioxide 25 mmol/L (21-32); Chloride 103 mmol/L (98-107); Glucose 90 mg/dL (74-106); Potassium 3.9 mmol/L (3.5-5.1); Sodium 135 mmol/L (136-145)
[2020-10-09 09:29] LABS: Alanine Aminotransferase 22 U/L (13-56); Alkaline Phosphatase 77 U/L (45-117); Aspartate Aminotransferase 20 U/L (15-37); BUN/Creatinine Ratio 15.8; GFR African American 96 mL/min; GFR Non-African American 80 mL/min; Total Protein 7.3 g/dL (6.4-8.2)
[2020-10-09] MEDS ORDERED: HYDROcodone-ACET 5/325MG TAB PO PRN (10:30)
[2020-10-09] MEDS ORDERED: ASPirin 81 mg TAB PO ONE (10:30)
[2020-10-09] MEDS ORDERED: NITROGLYCERIN 0.4 MG SL TAB SL PRN (10:30)
[2020-10-09] MEDS ORDERED: ACETAMINOPHEN 500 MG TAB PO PRN (10:30)
[2020-10-09] MEDS ORDERED: hydrALAZINE HCL 20 MG/ML VL IV PRN (10:30)
[2020-10-09] MEDS ORDERED: MORPHINE SULF INJ 2 MG/ML SYRINGE 1ML IV PRN ×2 (10:30)
[2020-10-09] MEDS ORDERED: ONDANSETRON HCL 4 MG/2 ML VIAL IV PRN (10:30)
[2020-10-09 14:47] LABS: CRP High Sensitivity < 0.02 mg/dL (< 0.3); Cholesterol 171 mg/dL (< 200)
[2020-10-09 14:50] LABS: HDL Cholesterol 98 mg/dL (40-59); LDL Cholesterol 63 mg/dL (< 100); Triglycerides 71 mg/dL (< 150)
[2020-10-09] MEDS ORDERED: GLUCAGON HYDROCHLORIDE (RDNA) 1 MG VIAL IV ONE (17:45)
[2020-10-09] MEDS ORDERED: ATEN-60 PO (18:52)
[2020-10-09] MEDS ORDERED: LISI-716 PO (18:52)
[2020-10-09] MEDS ORDERED: DILT-14 PO (18:52)
[2020-10-09] MEDS ORDERED: LEVO50TA7 PO (18:52)
[2020-10-09] MEDS: ALBUTEROL SULF 2.5 MG/0.5ML(0.5%) NEB SOLN NEB PRN (20:05)
[2020-10-09] MEDS: IPRATROPIUM BROM 0.5 MG/2.5ML INH SOL NEB PRN (20:05)
[2020-10-09] MEDS: BUDESONIDE (INHALATION) 0.5 MG/2 ML NEB NEB SCH (20:05)
[2020-10-09] MEDS: ATORVASTATIN 20 MG TAB PO SCH (21:00)
[2020-10-09 22:00] VITALS: BP 109/54
[2020-10-09] MEDS: ALPRAZolam 0.25 MG TAB PO PRN (22:05)
[2020-10-10 05:00] VITALS: BP 138/75
[2020-10-10] MEDS ORDERED: ADENOSINE 44 MG in GIVE UN-DILUTED 0 ML IV STA (08:15)
[2020-10-10 08:30] VITALS: BP 140/56
[2020-10-10 09:35] LABS: INR 0.99 (0.9-1.15); Partial Thromboplastin Time 30.8 sec (23.0-31.2)
[2020-10-10] MEDS: BUDESONIDE (INHALATION) 0.5 MG/2 ML NEB NEB SCH ×3 (10:24→23:07)
[2020-10-10] MEDS: ALBUTEROL SULF 2.5 MG/0.5ML(0.5%) NEB SOLN NEB PRN (10:24)
[2020-10-10] MEDS: IPRATROPIUM BROM 0.5 MG/2.5ML INH SOL NEB PRN (10:24)
[2020-10-10] MEDS ORDERED: LEVOTHYROXINE SODIUM 50 MCG TAB PO ONE (10:30)
[2020-10-10] MEDS: FAMOTIDINE 20 MG TAB PO SCH (11:09)
[2020-10-10] MEDS: LISINOPRIL 10 MG TAB PO SCH (11:09)
[2020-10-10] MEDS: ASPirin-EC 81 mg tab PO SCH (11:10)
[2020-10-10] MEDS: ALPRAZolam 0.25 MG TAB PO PRN ×2 (11:21→23:21)
[2020-10-10 12:30] VITALS: BP 155/81
[2020-10-10 14:16] LABS: Urine Bacteria FEW /hpf (None Seen); Urine Blood Negative /uL (Negative); Urine Specific Gravity 1.003 (1.001-1.035); Urine WBC 1 /hpf (0 - 5)
[2020-10-10 14:40] LABS: Alcohol, Urine < 3.0 mg/dL (0-10); Amphetamine Screen, Urine NEGATIVE (NEGATIVE); Barbiturate Scree,Urine NEGATIVE (NEGATIVE); Benzodiazephine Screen, Urine NEGATIVE (NEGATIVE); Cannabinoid Screen, Urine POSITIVE (NEGATIVE); Cocaine Screen, Urine NEGATIVE (NEGATIVE); Opiate Scree,Urine NEGATIVE (NEGATIVE); Phencyclidine Screen, Urine NEGATIVE (NEGATIVE)
[2020-10-10 16:48] VITALS: BP 117/52
[2020-10-10] MEDS: ATORVASTATIN 20 MG TAB PO SCH (20:50)
[2020-10-10 22:00] VITALS: BP 156/97
[2020-10-11 05:00] VITALS: BP 107/60
[2020-10-11] MEDS ORDERED: LEVOTHYROXINE SODIUM 50 MCG TAB PO SCH (07:00)
[2020-10-11] MEDS ORDERED: LEVOTHYROXINE SODIUM 25 MCG TAB PO SCH (07:00)
[2020-10-11] MEDS: BUDESONIDE (INHALATION) 0.5 MG/2 ML NEB NEB SCH (07:06)
[2020-10-11 08:45] VITALS: BP 121/67
[2020-10-11] MEDS: LISINOPRIL 10 MG TAB PO SCH (10:00)
[2020-10-11] MEDS: ASPirin-EC 81 mg tab PO SCH (10:30)
[2020-10-11] MEDS: FAMOTIDINE 20 MG TAB PO SCH (10:34)
[2020-10-11 12:14] VITALS: BP 121/67
[2020-10-11 12:49] VITALS: BP 136/70
== END 2020-10-11 12:45 | disposition home or self-care (01) | DRG 313 ==
LOC: ER 08:22 → TELE 10:19 → TELE-CENTR 17:27
PROVIDERS: ADMIT Nurse Practitioner Acute Care; ATTEND Internal Medicine
DX: R07.9 Chest pain, unspecified (principal); I24.9 Acute ischemic heart disease, unspecified; I10 Essential (primary) hypertension; E03.9 Hypothyroidism, unspecified; F41.9 Anxiety disorder, unspecified; Z20.822 Contact with and (suspected) exposure to COVID-19; R00.1 Bradycardia, unspecified; K21.9 Gastro-esophageal reflux disease without esophagitis; J44.9 Chronic obstructive pulmonary disease, unspecified; Z96.659 Presence of unspecified artificial knee joint; F17.200 Nicotine dependence, unspecified, uncomplicated; E78.5 Hyperlipidemia, unspecified; F12.90 Cannabis use, unspecified, uncomplicated; Z79.899 Other long term (current) drug therapy; Z80.0 Family history of malignant neoplasm of digestive organs; Z80.3 Family history of malignant neoplasm of breast; Z82.49 Family history of ischemic heart disease and other diseases of the circulatory system; Z83.3 Family history of diabetes mellitus; Z88.6 Allergy status to analgesic agent; Z71.6 Tobacco abuse counseling
CPT/HCPCS: 36415; 71045; 78452; 80053; 80061; 80307; 81001; 84443; 84484; 85025; 85610; 85730; 86141; 87426; 93005; 93017; 93306; 94640; G0378; J0153

== ENCOUNTER 2020-10-19 10:40 | Inpatient (IN) | payer OTHER ==
[~2020-10-19] VITALS: Ht 144.8 cm; Wt 54.0 kg
[~2020-10-19 10:40] MED LIST changes: -AML5T PO; +ATEN-60 PO; -CHOL20007 PO; +DILT-14 PO; -LEV150T PO; +LEVO50TA7 PO; +LISI-716 PO; -LORA1TAB23; -MAGN500T12 PO; -PROVENTIL
[2020-10-19] MEDS ORDERED: MORPHINE SULFATE 4 MG/ML SYR/VIAL IV ONE (11:00)
[2020-10-19] MEDS ORDERED: ONDANSETRON HCL 4 MG/2 ML VIAL IV ONE (11:00)
[2020-10-19 11:33] LABS: Basophils % (auto) 0.7 % (0.0-2.0); Eosinophils # (auto) 0 10 ^3/uL (0-0.8); Mean Corpuscular Hemoglobin 34.3 pg (28.0-32.0); Mean Corpuscular Hgb Conc. 34.6 g/dL (32.0-36.0); Monocytes # (auto) 0.3 10 ^3/uL (0-1.3); Neutrophils # (auto) 5.3 10 ^3/uL (1.6-8.6); Nucleated Red Blood Cells % 0.1 %
[2020-10-19 11:35] LABS: Basophils # (auto) 0 10 ^3/uL (0-0.2); Eosinophils % (auto) 0.3 % (0.0-7.0); Hematocrit 41.6 % (36.0-46.0); Hemoglobin 14.4 g/dL (12.2-16.2); Lymphocytes # (auto) 1.6 10 ^3/uL (0.4-5.4); Lymphocytes % (auto) 21.7 % (10.0-50.0); Mean Corpuscular Volume 99.3 fL (80.0-100.0); Monocytes % (auto) 4.5 % (0.0-12.0); Neutrophils % (auto) 72.8 % (37.0-80.0); Platelet Count (auto) 146 10^3/uL (140-450); Red Blood Cells 4.18 10^6/uL (4.0-5.20); Red Cell Distribution Width 17.1 % (11.8-14.3); White Blood Cell 7.3 10^3/uL (4.4-10.8)
[2020-10-19 12:09] LABS: Albumin 3.9 g/dL (3.4-5.0); Anion Gap 8 (5-15); Blood Urea Nitrogen 13 mg/dL (7-18); Calcium 8.8 mg/dL (8.5-10.1); Carbon Dioxide 25 mmol/L (21-32); Chloride 105 mmol/L (98-107); Glucose 101 mg/dL (74-106); Magnesium 2.5 mg/dL (1.6-2.6); Potassium 3.9 mmol/L (3.5-5.1); Sodium 138 mmol/L (136-145)
[2020-10-19 12:15] LABS: Alanine Aminotransferase 27 U/L (13-56); Alkaline Phosphatase 80 U/L (45-117); Aspartate Aminotransferase 24 U/L (15-37); BUN/Creatinine Ratio 21.7; Bilirubin, Total 0.5 mg/dL (0.2-1.0); GFR African American 127 mL/min; GFR Non-African American 105 mL/min; Total Protein 6.9 g/dL (6.4-8.2)
[2020-10-19] MEDS ORDERED: PROMETHAZINE HCL 25 MG/ML 1ML IV ONE (13:15)
[2020-10-19] MEDS ORDERED: MORPHINE SULF INJ 2 MG/ML SYRINGE 1ML IV PRN ×3 (13:15→20:30)
[2020-10-19] MEDS ORDERED: NITROGLYCERIN 0.4 MG SL TAB SL PRN ×2 (13:15→20:30)
[2020-10-19] MEDS ORDERED: ATOR20TA50 PO (13:22)
[2020-10-19] MEDS ORDERED: LEVO75TA6 PO (13:22)
[2020-10-19] MEDS ORDERED: FLUT45AE2 IN (13:27)
[2020-10-19] MEDS ORDERED: ALBUAER3 IN (13:27)
[2020-10-19] MEDS ORDERED: ALPR0.5T PO (13:31)
[2020-10-19] MEDS ORDERED: CHOL100029 PO (13:32)
[2020-10-19] MEDS ORDERED: ACETAMINOPHEN 325 MG TAB PO ONE (15:30)
[2020-10-19 17:39] VITALS: BP 137/66
[2020-10-19] MEDS ORDERED: HYDROcodone-ACET 5/325MG TAB PO PRN (20:30)
[2020-10-19] MEDS ORDERED: methylPREDNISolone SOD SUCC 125 MG/2 ML VL IV ONE (20:30)
[2020-10-19] MEDS ORDERED: ALPRAZolam 0.5 MG TAB PO PRN (20:30)
[2020-10-19] MEDS ORDERED: DOCUSATE SOD 100 MG CAP PO PRN (20:30)
[2020-10-19] MEDS ORDERED: ACETAMINOPHEN 325 MG TAB PO PRN (20:30)
[2020-10-19] MEDS ORDERED: ONDANSETRON HCL 4 MG/2 ML VIAL IV PRN (20:30)
[2020-10-19] MEDS ORDERED: ALUM & MAG HYDROX-SIMETH LIQ(MAALOX) 30 ML PO PRN (20:30)
[2020-10-19] MEDS ORDERED: ALBUTEROL SULF 2.5 MG/0.5ML(0.5%) NEB SOLN NEB ONE (20:30)
[2020-10-19] MEDS ORDERED: AZITHROMYCIN 500MG/ 250ML 250 ML IV ONE (21:15)
[2020-10-19] MEDS: SODIUM CHLOR 0.9% PF (SALINE LOCK) 10ML VIAL/SYR IV SCH (21:41)
[2020-10-19 22:00] VITALS: BP 114/64
[2020-10-19] MEDS: FAMOTIDINE (10MG/ML) 2ML VL IV SCH (22:01)
[2020-10-19] MEDS: IPRATROPIUM BROM 0.5 MG/2.5ML INH SOL NEB SCH (22:09)
[2020-10-20] VITALS (7 sets, daily range): BP systolic 100–137; BP diastolic 57–66
[2020-10-20] MEDS: IPRATROPIUM BROM 0.5 MG/2.5ML INH SOL NEB SCH ×6 (02:04→22:47)
[2020-10-20 02:34] LABS: Urine WBC None Seen /hpf (0 - 5)
[2020-10-20 02:44] LABS: Urine Bacteria NONE SEEN /hpf (None Seen); Urine Blood Negative /uL (Negative); Urine Specific Gravity 1.004 (1.001-1.035)
[2020-10-20 03:17] LABS: Amphetamine Screen, Urine NEGATIVE (NEGATIVE); Barbiturate Scree,Urine NEGATIVE (NEGATIVE); Benzodiazephine Screen, Urine NEGATIVE (NEGATIVE); Cannabinoid Screen, Urine POSITIVE (NEGATIVE); Cocaine Screen, Urine NEGATIVE (NEGATIVE); Opiate Scree,Urine NEGATIVE (NEGATIVE); Phencyclidine Screen, Urine NEGATIVE (NEGATIVE)
[2020-10-20] MEDS: ALBUTEROL SULF 2.5 MG/0.5ML(0.5%) NEB SOLN NEB PRN ×3 (05:56→22:46)
[2020-10-20] MEDS: SODIUM CHLOR 0.9% PF (SALINE LOCK) 10ML VIAL/SYR IV SCH ×3 (06:33→22:47)
[2020-10-20] MEDS: LEVOTHYROXINE SODIUM 25 MCG TAB PO SCH (06:34)
[2020-10-20] MEDS: methylPREDNISolone SOD SUCC 40 MG/ML VL IV SCH ×3 (06:34→22:47)
[2020-10-20 07:16] LABS: Basophils # (auto) 0 10 ^3/uL (0-0.2); Basophils % (auto) 0.1 % (0.0-2.0); Eosinophils # (auto) 0 10 ^3/uL (0-0.8); Hematocrit 41.1 % (36.0-46.0); Hemoglobin 13.9 g/dL (12.2-16.2); Lymphocytes # (auto) 0.6 10 ^3/uL (0.4-5.4); Lymphocytes % (auto) 10.1 % (10.0-50.0); Mean Corpuscular Hemoglobin 33.8 pg (28.0-32.0); Mean Corpuscular Hgb Conc. 33.8 g/dL (32.0-36.0); Mean Corpuscular Volume 99.9 fL (80.0-100.0); Monocytes # (auto) 0 10 ^3/uL (0-1.3); Monocytes % (auto) 0.5 % (0.0-12.0); Neutrophils # (auto) 5.5 10 ^3/uL (1.6-8.6); Neutrophils % (auto) 89.3 % (37.0-80.0); Nucleated Red Blood Cells % 0.1 %; Platelet Count (auto) 151 10^3/uL (140-450); Red Blood Cells 4.11 10^6/uL (4.0-5.20); Red Cell Distribution Width 17.7 % (11.8-14.3); White Blood Cell 6.2 10^3/uL (4.4-10.8)
[2020-10-20 07:27] LABS: Partial Thromboplastin Time 26.9 sec (23.0-31.2)
[2020-10-20 07:34] LABS: Albumin 3.7 g/dL (3.4-5.0); Anion Gap 7 (5-15); Blood Urea Nitrogen 15 mg/dL (7-18); Calcium 8.7 mg/dL (8.5-10.1); Carbon Dioxide 28 mmol/L (21-32); Chloride 101 mmol/L (98-107); Glucose 153 mg/dL (74-106); Magnesium 2.7 mg/dL (1.6-2.6); Potassium 4.3 mmol/L (3.5-5.1); Sodium 136 mmol/L (136-145)
[2020-10-20 07:38] LABS: Alanine Aminotransferase 29 U/L (13-56); Alkaline Phosphatase 73 U/L (45-117); Aspartate Aminotransferase 19 U/L (15-37); BUN/Creatinine Ratio 18.8; Bilirubin, Total 0.4 mg/dL (0.2-1.0); CRP High Sensitivity 0.03 mg/dL (< 0.3); Creatine Kinase IFCC 59 U/L (26-192); GFR African American 91 mL/min; GFR Non-African American 75 mL/min; Phosphorus 3.5 mg/dL (2.5-4.90); Total Protein 6.8 g/dL (6.4-8.2)
[2020-10-20] MEDS: FAMOTIDINE (10MG/ML) 2ML VL IV SCH (11:45)
[2020-10-20] MEDS: ATORVASTATIN 20 MG TAB PO SCH (11:46)
[2020-10-20] MEDS: CHOLECALCIFEROL (VITD3) 1,000UNIT=25mCg TAB PO SCH (11:46)
[2020-10-20] MEDS: ASPirin 81 mg TAB PO SCH (11:46)
[2020-10-20] MEDS: LISINOPRIL 10 MG TAB PO SCH (11:47)
[2020-10-20] MEDS: ENOXAPARIN SOD 40 MG/0.4 ML SYRINGE SC SCH (11:48)
[2020-10-20] MEDS: AZITHROMYCIN 500MG/ 250ML 250 ML IV SCH (11:48)
[2020-10-20] MEDS: ALPRAZolam 0.5 MG TAB PO SCH ×2 (15:26→22:48)
[2020-10-21] MEDS: IPRATROPIUM BROM 0.5 MG/2.5ML INH SOL NEB SCH ×4 (02:14→14:21)
[2020-10-21] MEDS: ALBUTEROL SULF 2.5 MG/0.5ML(0.5%) NEB SOLN NEB PRN (02:14)
[2020-10-21 05:00] VITALS: BP 96/50
[2020-10-21] MEDS: SODIUM CHLOR 0.9% PF (SALINE LOCK) 10ML VIAL/SYR IV SCH ×2 (06:10→14:11)
[2020-10-21] MEDS: methylPREDNISolone SOD SUCC 40 MG/ML VL IV SCH ×2 (06:11→14:11)
[2020-10-21] MEDS: ALPRAZolam 0.5 MG TAB PO SCH ×2 (06:11→14:12)
[2020-10-21] MEDS: LEVOTHYROXINE SODIUM 25 MCG TAB PO SCH (06:11)
[2020-10-21 08:00] VITALS: BP 99/58
[2020-10-21 09:00] VITALS: BP 99/58
[2020-10-21] MEDS: ASPirin 81 mg TAB PO SCH (10:43)
[2020-10-21] MEDS: AZITHROMYCIN 500MG/ 250ML 250 ML IV SCH (10:43)
[2020-10-21] MEDS: FAMOTIDINE (10MG/ML) 2ML VL IV SCH (10:43)
[2020-10-21] MEDS: CHOLECALCIFEROL (VITD3) 1,000UNIT=25mCg TAB PO SCH (10:44)
[2020-10-21] MEDS: ATORVASTATIN 20 MG TAB PO SCH (10:44)
[2020-10-21] MEDS: LISINOPRIL 10 MG TAB PO SCH (10:45)
[2020-10-21] MEDS: ENOXAPARIN SOD 40 MG/0.4 ML SYRINGE SC SCH (10:46)
[2020-10-21 13:00] VITALS: BP 104/55
[2020-10-21 17:00] VITALS: BP 109/76
== END 2020-10-21 16:58 | disposition home or self-care (01) | DRG 71 ==
LOC: ER 10:40 → TELE 13:06 → TELE-WESTW 16:49
PROVIDERS: ADMIT Hospitalist; ATTEND Hospitalist
DX: G93.41 Metabolic encephalopathy (principal); J44.1 Chronic obstructive pulmonary disease with (acute) exacerbation; I10 Essential (primary) hypertension; R07.89 Other chest pain; E03.9 Hypothyroidism, unspecified; E78.00 Pure hypercholesterolemia, unspecified; E78.5 Hyperlipidemia, unspecified; I25.10 Atherosclerotic heart disease of native coronary artery without angina pectoris; F41.9 Anxiety disorder, unspecified; Z20.822 Contact with and (suspected) exposure to COVID-19; M06.9 Rheumatoid arthritis, unspecified; Z79.899 Other long term (current) drug therapy; Z80.0 Family history of malignant neoplasm of digestive organs; Z82.49 Family history of ischemic heart disease and other diseases of the circulatory system; Z83.3 Family history of diabetes mellitus; Z85.3 Personal history of malignant neoplasm of breast
CPT/HCPCS: 36415; 36600; 70450; 71045; 74176; 80053; 80307; 81001; 82306; 82550; 82805; 83036; 83516; 83735; 83880; 84100; 84443; 84484; 85025; 85379; 85610; 85652; 85730; 86141; 86225; 86235; 87081; 87086; 87426; 93005; 94640; 96374; 96375; G0378; J2405; J3490

== ENCOUNTER 2023-02-26 21:10 | Inpatient (IN) | payer OTHER ==
[~2023-02-26] VITALS: Ht 170.2 cm; Wt 47.9 kg
[~2023-02-26 21:10] MED LIST changes: +ALBUAER3 IN; +ALPR0.5T PO; -ATEN-60 PO; +CHOL100029 PO; -DILT-14 PO; +FLUT45AE2 IN; -LEVO50TA7 PO; +LEVO75TA6 PO; -LISI-716 PO; +LISI10TA34 PO
[2023-02-26] MEDS ORDERED: IOHEXOL 300 MG/ML 100ML BOTTLE IJ ONE (21:44)
[2023-02-26 21:49] LABS: Basophils # (auto) 0 10 ^3/uL (0-0.2); Basophils % (auto) 0.6 % (0.0-2.0); Eosinophils # (auto) 0.1 10 ^3/uL (0-0.8); Lymphocytes # (auto) 1.7 10 ^3/uL (0.4-5.4); Monocytes # (auto) 0.6 10 ^3/uL (0-1.3)
[2023-02-26 21:51] LABS: Eosinophils % (auto) 1.2 % (0.0-7.0); Lymphocytes % (auto) 21.2 % (10.0-50.0); Mean Corpuscular Hgb Conc. 33.2 g/dL (32.0-36.0); Mean Corpuscular Volume 84.1 fL (80.0-100.0); Monocytes % (auto) 7.2 % (0.0-12.0); Neutrophils # (auto) 5.4 10 ^3/uL (1.6-8.6); Neutrophils % (auto) 69.8 % (37.0-80.0); Red Blood Cells 4.64 10^6/uL (4.0-5.20); Red Cell Distribution Width 15.2 % (11.8-14.3); White Blood Cell 7.8 10^3/uL (4.4-10.8)
[2023-02-26 22:25] LABS: Albumin 3.5 g/dL (3.4-5.0); Potassium 4.1 mmol/L (3.5-5.1)
[2023-02-26 22:30] LABS: BUN/Creatinine Ratio 22.6 (10.0-20.0); Bilirubin, Total 0.3 mg/dL (0.2-1.0); Calcium 8.4 mg/dL (8.5-10.1); Total Protein 6.8 g/dL (6.4-8.2)
[2023-02-26] MEDS ORDERED: ONDANSETRON HCL 4 MG/2 ML VIAL IV ONE (22:30)
[2023-02-26] MEDS ORDERED: HYDROmorphone HCL 2 MG/ML VL/or syr IV ONE (22:30)
[2023-02-27] VITALS (7 sets, daily range): BP systolic 116–133; BP diastolic 53–78; PULSE 61–78; RESP 16–18; TEMP 97.7–98; O2SAT 93–99
[2023-02-27] MEDS ORDERED: ONDANSETRON HCL 4 MG/2 ML VIAL IV ONE (00:30)
[2023-02-27] MEDS ORDERED: SODIUM CHLORIDE 0.9% 1,000 ML IV ONE (00:30)
[2023-02-27] MEDS ORDERED: ALBUTEROL SULF 2.5 MG/0.5ML(0.5%) NEB SOLN NEB ONE (00:45)
[2023-02-27] MEDS ORDERED: METOCLOPRAMIDE HCL 5MG/ml INJ 2ml VIAL IV ONE (00:45)
[2023-02-27] MEDS ORDERED: IPRATROPIUM BROM 0.5 MG/2.5ML INH SOL NEB ONE (00:45)
[2023-02-27] MEDS ORDERED: ACETAMINOPHEN 325 MG TAB PO PRN (01:00)
[2023-02-27] MEDS ORDERED: HYDROmorphone HCL 2 MG/ML VL/or syr IV PRN (01:00)
[2023-02-27] MEDS ORDERED: ONDANSETRON HCL 4 MG/2 ML VIAL IV PRN (01:00)
[2023-02-27] MEDS ORDERED: AZITHROMYCIN 500MG/ 250ML 250 ML IV ONE (01:00)
[2023-02-27] MEDS ORDERED: DOCUSATE SOD 100 MG CAP PO PRN (01:00)
[2023-02-27] MEDS ORDERED: MORPHINE SULFATE INJ 2 MG/ml SYRG IV PRN (02:15)
[2023-02-27] MEDS ORDERED: NITROGLYCERIN 0.4 MG SL TAB SL PRN (02:15)
[2023-02-27 05:14] LABS: Basophils # (auto) 0 10 ^3/uL (0-0.2); Basophils % (auto) 0.2 % (0.0-2.0); Eosinophils # (auto) 0 10 ^3/uL (0-0.8); Hematocrit 39.7 % (36.0-46.0); Lymphocytes # (auto) 0.7 10 ^3/uL (0.4-5.4); Lymphocytes % (auto) 7.5 % (10.0-50.0); Mean Corpuscular Hemoglobin 27.8 pg (28.0-32.0); Mean Corpuscular Hgb Conc. 32.8 g/dL (32.0-36.0); Mean Corpuscular Volume 84.5 fL (80.0-100.0); Monocytes # (auto) 0.4 10 ^3/uL (0-1.3); Monocytes % (auto) 3.9 % (0.0-12.0); Neutrophils # (auto) 8.3 10 ^3/uL (1.6-8.6); Neutrophils % (auto) 88.4 % (37.0-80.0); Nucleated Red Blood Cells % 0.1 %; Red Cell Distribution Width 15.3 % (11.8-14.3); White Blood Cell 9.4 10^3/uL (4.4-10.8)
[2023-02-27 05:35] LABS: Albumin 3.6 g/dL (3.4-5.0); Calcium 8.3 mg/dL (8.5-10.1); Potassium 3.9 mmol/L (3.5-5.1)
[2023-02-27 05:37] LABS: BUN/Creatinine Ratio 24.3 (10.0-20.0)
[2023-02-27 05:40] LABS: Bilirubin, Total 0.3 mg/dL (0.2-1.0)
[2023-02-27] MEDS ORDERED: CYAN500L4 PO (05:45)
[2023-02-27] MEDS ORDERED: LOSA100T58 PO (05:45)
[2023-02-27] MEDS: IPRATROPIUM BROM 0.5 MG/2.5ML INH SOL NEB PRN (07:12)
[2023-02-27] MEDS: ALBUTEROL SULF 2.5 MG/0.5ML(0.5%) NEB SOLN NEB PRN (07:12)
[2023-02-27 07:29] LABS: Urine Bacteria NONE SEEN /hpf (None Seen); Urine Blood Negative /uL (Negative); Urine Clarity Clear (Clear); Urine Color Colorless (Yellow); Urine Protein, UAD Negative (Negative); Urine Specific Gravity 1.033 (1.001-1.035); Urine Urobilinogen Normal (Negative); Urine WBC <1 /hpf (0 - 5)
[2023-02-27] MEDS: FAMOTIDINE (10MG/ML) 2ML VL IV SCH ×2 (10:15→21:58)
[2023-02-27] MEDS: METOCLOPRAMIDE HCL 5MG/ml INJ 2ml VIAL IV PRN (16:47)
[2023-02-27] MEDS: KETOROLAC TROMETH 30 MG/ML 1ML VIAL IV PRN (16:48)
[2023-02-27] MEDS ORDERED: METOCLOPRAMIDE HCL 5MG/ml INJ 2ml VIAL IV SCH ×2 (18:00)
[2023-02-27] MEDS: AZITHROMYCIN 500MG/ 250ML 250 ML IV SCH (21:59)
[2023-02-28] VITALS (10 sets, daily range): BP systolic 124–156; BP diastolic 60–89; PULSE 62–105; RESP 15–20; TEMP 97.2–98.3; O2SAT 17–99
[2023-02-28 06:02] LABS: Basophils # (auto) 0 10 ^3/uL (0-0.2); Basophils % (auto) 0.5 % (0.0-2.0); Eosinophils # (auto) 0.1 10 ^3/uL (0-0.8); Eosinophils % (auto) 0.6 % (0.0-7.0); Hematocrit 43.2 % (36.0-46.0); Lymphocytes # (auto) 1.9 10 ^3/uL (0.4-5.4); Lymphocytes % (auto) 23.3 % (10.0-50.0); Mean Corpuscular Hemoglobin 27.5 pg (28.0-32.0); Mean Corpuscular Hgb Conc. 32.4 g/dL (32.0-36.0); Monocytes # (auto) 0.7 10 ^3/uL (0-1.3); Monocytes % (auto) 8.1 % (0.0-12.0); Neutrophils # (auto) 5.6 10 ^3/uL (1.6-8.6); Neutrophils % (auto) 67.5 % (37.0-80.0); Nucleated Red Blood Cells % 0.2 %; Red Blood Cells 5.08 10^6/uL (4.0-5.20); Red Cell Distribution Width 15.3 % (11.8-14.3); White Blood Cell 8.4 10^3/uL (4.4-10.8)
[2023-02-28 06:04] LABS: Albumin 3.7 g/dL (3.4-5.0); BUN/Creatinine Ratio 19.4 (10.0-20.0); Calcium 8.5 mg/dL (8.5-10.1); Potassium 3.4 mmol/L (3.5-5.1)
[2023-02-28 06:07] LABS: Bilirubin, Total 0.4 mg/dL (0.2-1.0); Total Protein 7.2 g/dL (6.4-8.2)
[2023-02-28] MEDS: FAMOTIDINE (10MG/ML) 2ML VL IV SCH ×2 (10:15→21:09)
[2023-02-28] MEDS: IPRATROPIUM BROM 0.5 MG/2.5ML INH SOL NEB PRN (12:22)
[2023-02-28] MEDS: ALBUTEROL SULF 2.5 MG/0.5ML(0.5%) NEB SOLN NEB PRN (12:22)
[2023-02-28] MEDS: POTASSIUM CHL 20MEQ/100ML 100 ML IV SCH ×2 (12:30→13:40)
[2023-02-28] MEDS ORDERED: POTASSIUM CHL 20MEQ/100ML 100 ML IV SCH (17:30)
[2023-02-28] MEDS: AZITHROMYCIN 500MG/ 250ML 250 ML IV SCH (21:09)
[2023-03-01] VITALS (13 sets, daily range): BP systolic 104–178; BP diastolic 63–84; PULSE 71–88; RESP 18–22; TEMP 97.5–98.5; O2SAT 91–97
[2023-03-01] MEDS: KETOROLAC TROMETH 30 MG/ML 1ML VIAL IV PRN ×3 (07:29→23:58)
[2023-03-01] MEDS: FAMOTIDINE (10MG/ML) 2ML VL IV SCH ×2 (11:10→20:53)
[2023-03-01] MEDS: METOCLOPRAMIDE HCL 5MG/ml INJ 2ml VIAL IV PRN (11:21)
[2023-03-01] MEDS: ALBUTEROL SULF 2.5 MG/0.5ML(0.5%) NEB SOLN NEB PRN (12:33)
[2023-03-01] MEDS: IPRATROPIUM BROM 0.5 MG/2.5ML INH SOL NEB PRN (12:33)
[2023-03-01] MEDS: AZITHROMYCIN 500MG/ 250ML 250 ML IV SCH (20:53)
[2023-03-01] MEDS ORDERED: hydrALAZINE HCL 20 MG/ML VL IV PRN (22:30)
[2023-03-02] VITALS (10 sets, daily range): BP systolic 116–144; BP diastolic 63–77; PULSE 67–118; RESP 16–20; TEMP 97.8–98.6; O2SAT 94–100
[2023-03-02] MEDS: KETOROLAC TROMETH 30 MG/ML 1ML VIAL IV PRN ×2 (06:08→12:12)
[2023-03-02] MEDS: FAMOTIDINE (10MG/ML) 2ML VL IV SCH (09:45)
[2023-03-02] MEDS: BUDESONIDE (INHALATION) 0.5 MG/2 ML NEB NEB SCH ×2 (10:26→18:39)
[2023-03-02] MEDS: D5W/SOD CHL 0.45%/KCL 20MEQ 1,000 ML IV SCH ×2 (12:04→19:27)
[2023-03-02] MEDS ORDERED: GASTROGRAFIN 120 ML SOL ONE (12:30)
[2023-03-02] MEDS: ALBUTEROL SULF 2.5 MG/0.5ML(0.5%) NEB SOLN NEB PRN (18:39)
[2023-03-02] MEDS: IPRATROPIUM BROM 0.5 MG/2.5ML INH SOL NEB PRN (18:39)
[2023-03-02] MEDS: LORazepam 2MG/ML-1ML VIAL IV PRN (20:07)
[2023-03-03] VITALS (9 sets, daily range): BP systolic 113–136; BP diastolic 51–74; PULSE 61–87; RESP 16–20; TEMP 97.7–98.5; O2SAT 91–100
[2023-03-03 05:13] LABS: Basophils # (auto) 0 10 ^3/uL (0-0.2); Basophils % (auto) 0.2 % (0.0-2.0); Eosinophils # (auto) 0.1 10 ^3/uL (0-0.8); Eosinophils % (auto) 1.1 % (0.0-7.0); Hematocrit 43.9 % (36.0-46.0); Hemoglobin 14.6 g/dL (12.2-16.2); Lymphocytes # (auto) 1.1 10 ^3/uL (0.4-5.4); Lymphocytes % (auto) 15.1 % (10.0-50.0); Mean Corpuscular Hemoglobin 27.9 pg (28.0-32.0); Mean Corpuscular Hgb Conc. 33.3 g/dL (32.0-36.0); Mean Corpuscular Volume 83.8 fL (80.0-100.0); Monocytes # (auto) 0.8 10 ^3/uL (0-1.3); Monocytes % (auto) 10.4 % (0.0-12.0); Neutrophils # (auto) 5.5 10 ^3/uL (1.6-8.6); Neutrophils % (auto) 73.2 % (37.0-80.0); Red Blood Cells 5.25 10^6/uL (4.0-5.20); Red Cell Distribution Width 14.8 % (11.8-14.3); White Blood Cell 7.5 10^3/uL (4.4-10.8)
[2023-03-03 05:40] LABS: Calcium 8.9 mg/dL (8.7-10.4); Potassium 4.1 mmol/L (3.5-5.1)
[2023-03-03 05:44] LABS: BUN/Creatinine Ratio 34.5 (10.0-20.0)
[2023-03-03] MEDS: D5W/SOD CHL 0.45%/KCL 20MEQ 1,000 ML IV SCH ×2 (06:07→21:45)
[2023-03-03] MEDS: KETOROLAC TROMETH 30 MG/ML 1ML VIAL IV PRN (08:12)
[2023-03-03] MEDS: BUDESONIDE (INHALATION) 0.5 MG/2 ML NEB NEB SCH ×2 (10:26→17:52)
[2023-03-03] MEDS: ALBUTEROL SULF 2.5 MG/0.5ML(0.5%) NEB SOLN NEB PRN (17:52)
[2023-03-03] MEDS: IPRATROPIUM BROM 0.5 MG/2.5ML INH SOL NEB PRN (17:52)
[2023-03-03] MEDS: LORazepam 2MG/ML-1ML VIAL IV PRN (21:45)
[2023-03-03] MEDS: METOCLOPRAMIDE HCL 5MG/ml INJ 2ml VIAL IV SCH (21:45)
[2023-03-03] MEDS: LACTULOSE 20Gm/30ML SOLN PO SCH (21:45)
[2023-03-04] VITALS (11 sets, daily range): BP systolic 100–145; BP diastolic 69–89; PULSE 64–93; RESP 16–18; TEMP 97.5–98.6; O2SAT 91–100
[2023-03-04] MEDS: D5W/SOD CHL 0.45%/KCL 20MEQ 1,000 ML IV SCH ×2 (02:00→09:01)
[2023-03-04 06:13] LABS: Basophils # (auto) 0 10 ^3/uL (0-0.2); Basophils % (auto) 0.3 % (0.0-2.0); Eosinophils # (auto) 0.1 10 ^3/uL (0-0.8); Hemoglobin 14.6 g/dL (12.2-16.2); Lymphocytes # (auto) 1.3 10 ^3/uL (0.4-5.4); Lymphocytes % (auto) 18.8 % (10.0-50.0); Mean Corpuscular Hemoglobin 27.7 pg (28.0-32.0); Mean Corpuscular Hgb Conc. 33.1 g/dL (32.0-36.0); Mean Corpuscular Volume 83.7 fL (80.0-100.0); Monocytes # (auto) 0.8 10 ^3/uL (0-1.3); Monocytes % (auto) 11.2 % (0.0-12.0); Neutrophils # (auto) 4.8 10 ^3/uL (1.6-8.6); Neutrophils % (auto) 68.7 % (37.0-80.0); Nucleated Red Blood Cells % 0.1 %; Red Blood Cells 5.26 10^6/uL (4.0-5.20); Red Cell Distribution Width 15.2 % (11.8-14.3)
[2023-03-04] MEDS: METOCLOPRAMIDE HCL 5MG/ml INJ 2ml VIAL IV SCH ×2 (06:18→13:44)
[2023-03-04] MEDS: ALBUTEROL SULF 2.5 MG/0.5ML(0.5%) NEB SOLN NEB PRN ×2 (06:33→18:21)
[2023-03-04] MEDS: IPRATROPIUM BROM 0.5 MG/2.5ML INH SOL NEB PRN ×2 (06:33→18:21)
[2023-03-04] MEDS: BUDESONIDE (INHALATION) 0.5 MG/2 ML NEB NEB SCH ×2 (06:33→18:21)
[2023-03-04 06:36] LABS: Chloride 101 mmol/L (98-107); Potassium 4.9 mmol/L (3.5-5.1); Sodium 132 mmol/L (136-145)
[2023-03-04 06:37] LABS: Anion Gap 8.6 (5-15); Calcium 9.2 mg/dL (8.7-10.4); Carbon Dioxide 22.4 mmol/L (20-30)
[2023-03-04 06:42] LABS: BUN/Creatinine Ratio 18.4 (10.0-20.0); Blood Urea Nitrogen 14 mg/dL (9-23); Glucose 129 mg/dL (74-106)
[2023-03-04] MEDS ORDERED: D5W/ SOD CHL 0.9%/KCL 20MEQ 1,000 ML IV SCH (09:30)
[2023-03-04] MEDS: LACTULOSE 20Gm/30ML SOLN PO SCH (10:00)
[2023-03-04] MEDS: D5W/SOD CHLO 0.9% 1,000 ML IV SCH ×2 (10:53→19:30)
[2023-03-04] MEDS: LORazepam 2MG/ML-1ML VIAL IV PRN (12:55)
[2023-03-04] MEDS: ENOXAPARIN SOD 40 MG/0.4 ML SYRINGE SC SCH (13:44)
[2023-03-05] VITALS (14 sets, daily range): BP systolic 124–161; BP diastolic 62–86; PULSE 69–97; RESP 16–18; TEMP 97.1–98.2; O2SAT 95–100
[2023-03-05] MEDS: D5W/SOD CHLO 0.9% 1,000 ML IV SCH ×2 (04:24→15:30)
[2023-03-05 05:56] LABS: Basophils # (auto) 0 10 ^3/uL (0-0.2); Basophils % (auto) 0.3 % (0.0-2.0); Eosinophils # (auto) 0.1 10 ^3/uL (0-0.8); Eosinophils % (auto) 1.8 % (0.0-7.0); Hematocrit 40.9 % (36.0-46.0); Hemoglobin 13.5 g/dL (12.2-16.2); Lymphocytes # (auto) 1.3 10 ^3/uL (0.4-5.4); Lymphocytes % (auto) 35.7 % (10.0-50.0); Mean Corpuscular Hemoglobin 27.5 pg (28.0-32.0); Mean Corpuscular Volume 83.4 fL (80.0-100.0); Monocytes # (auto) 0.6 10 ^3/uL (0-1.3); Monocytes % (auto) 15.2 % (0.0-12.0); Neutrophils # (auto) 1.7 10 ^3/uL (1.6-8.6); Nucleated Red Blood Cells % 0.2 %; White Blood Cell 3.7 10^3/uL (4.4-10.8)
[2023-03-05 06:08] LABS: Chloride 104 mmol/L (98-107); INR 1.04 (0.9-1.15); Partial Thromboplastin Time 38.7 SEC (24.5-34.5); Potassium 4.2 mmol/L (3.5-5.1); Prothrombin Time 10.9 sec (9.3-11.8); Sodium 135 mmol/L (136-145)
[2023-03-05 06:09] LABS: Anion Gap 7.2 (5-15); Calcium 8.5 mg/dL (8.5-10.1); Carbon Dioxide 23.8 mmol/L (20-30)
[2023-03-05 06:14] LABS: BUN/Creatinine Ratio 12.7 (10.0-20.0); Blood Urea Nitrogen 8 mg/dL (9-23); Glucose 107 mg/dL (74-106)
[2023-03-05] MEDS: BUDESONIDE (INHALATION) 0.5 MG/2 ML NEB NEB SCH ×2 (06:51→18:48)
[2023-03-05] MEDS: IPRATROPIUM BROM 0.5 MG/2.5ML INH SOL NEB PRN ×2 (06:51→18:48)
[2023-03-05] MEDS: ALBUTEROL SULF 2.5 MG/0.5ML(0.5%) NEB SOLN NEB PRN ×2 (06:51→18:48)
[2023-03-05] MEDS ORDERED: BUPIVACAINE 0.25% INJ 50ML VIAL ONE (07:24)
[2023-03-05] MEDS ORDERED: ceFAZolin 1GM/50ML 50 ML IV ONE (08:06)
[2023-03-05] MEDS ORDERED: fentaNYL CITRATE 100 MCG/2 ML VL ONE (08:42)
[2023-03-05] MEDS ORDERED: MIDAZOLAM HCL 2MG/2ML 2ml VIAL (1mg/ml) ONE (08:42)
[2023-03-05] MEDS ORDERED: LIDOCAINE 1% INJ PF 5ML AMP ONE (08:43)
[2023-03-05] MEDS ORDERED: PROPOFOL 10 MG/ML 20 ML IV ONE (08:43)
[2023-03-05] MEDS ORDERED: ROCURONIUM 10MG/ML 10ML VIAL IV ONE (08:43)
[2023-03-05] MEDS ORDERED: ONDANSETRON HCL 4 MG/2 ML VIAL ONE (08:43)
[2023-03-05] MEDS ORDERED: HYDROmorphone HCL 2 MG/ML VL/or syr ONE (09:26)
[2023-03-05] MEDS: ENOXAPARIN SOD 40 MG/0.4 ML SYRINGE SC SCH (10:00)
[2023-03-05] MEDS ORDERED: ONDANSETRON HCL 4 MG/2 ML VIAL IV PRN (10:15)
[2023-03-05] MEDS ORDERED: HYDROmorphone HCL 2 MG/ML VL/or syr IV PRN ×2 (10:15)
[2023-03-05] MEDS ORDERED: NEOSTIGMINE 1 MG/ML INJ (10mg/10ML VIAL) ONE (10:38)
[2023-03-05] MEDS ORDERED: GLYCOPYRROLATE 0.2 MG/ML 1ML VIAL ONE (10:38)
[2023-03-05] MEDS: ONDANSETRON HCL 4 MG/2 ML VIAL IV PRN (17:25)
[2023-03-05] MEDS ORDERED: MORPHINE SULFATE INJ 2 MG/ml SYRG IV PRN (21:30)
[2023-03-06] VITALS (10 sets, daily range): BP systolic 118–146; BP diastolic 49–75; PULSE 69–76; RESP 16–21; TEMP 97.7–99; O2SAT 96–100
[2023-03-06] MEDS: D5W/SOD CHLO 0.9% 1,000 ML IV SCH ×2 (00:12→13:36)
[2023-03-06 05:53] LABS: Basophils # (auto) 0 10 ^3/uL (0-0.2); Basophils % (auto) 0.1 % (0.0-2.0); Eosinophils # (auto) 0 10 ^3/uL (0-0.8); Eosinophils % (auto) 0.1 % (0.0-7.0); Hematocrit 39.3 % (36.0-46.0); Hemoglobin 12.8 g/dL (12.2-16.2); Lymphocytes # (auto) 0.6 10 ^3/uL (0.4-5.4); Lymphocytes % (auto) 9.9 % (10.0-50.0); Mean Corpuscular Hemoglobin 27.7 pg (28.0-32.0); Mean Corpuscular Hgb Conc. 32.6 g/dL (32.0-36.0); Mean Corpuscular Volume 84.9 fL (80.0-100.0); Monocytes # (auto) 0.6 10 ^3/uL (0-1.3); Monocytes % (auto) 9.3 % (0.0-12.0); Neutrophils # (auto) 4.9 10 ^3/uL (1.6-8.6); Neutrophils % (auto) 80.6 % (37.0-80.0); Nucleated Red Blood Cells % 0.1 %; Red Blood Cells 4.63 10^6/uL (4.0-5.20); Red Cell Distribution Width 15.3 % (11.8-14.3); White Blood Cell 6.1 10^3/uL (4.4-10.8)
[2023-03-06 05:59] LABS: Calcium 7.6 mg/dL (8.7-10.4); Chloride 106 mmol/L (98-107); Potassium 3.7 mmol/L (3.5-5.1); Sodium 135 mmol/L (136-145)
[2023-03-06 06:05] LABS: Glucose 159 mg/dL (74-106)
[2023-03-06 06:08] LABS: BUN/Creatinine Ratio 8.8 (10.0-20.0); Blood Urea Nitrogen < 5 mg/dL (9-23)
[2023-03-06] MEDS: ENOXAPARIN SOD 40 MG/0.4 ML SYRINGE SC SCH (09:47)
[2023-03-06] MEDS: ceFAZolin 1GM/50ML 50 ML IV SCH ×3 (09:47→22:09)
[2023-03-06] MEDS: MEPERIDINE HCL (25 MG/ML) 1ML VIAL IM PRN ×3 (09:49→22:26)
[2023-03-06] MEDS: ONDANSETRON HCL 4 MG/2 ML VIAL IV PRN ×3 (09:49→22:26)
[2023-03-06] MEDS: BUDESONIDE (INHALATION) 0.5 MG/2 ML NEB NEB SCH ×2 (09:50→23:02)
[2023-03-07] VITALS (12 sets, daily range): BP systolic 124–146; BP diastolic 60–86; PULSE 61–79; RESP 14–20; TEMP 98.1–99; O2SAT 90–100
[2023-03-07] MEDS: D5W/SOD CHLO 0.9% 1,000 ML IV SCH ×3 (01:17→13:54)
[2023-03-07] MEDS: ceFAZolin 1GM/50ML 50 ML IV SCH ×3 (05:41→21:57)
[2023-03-07 06:13] LABS: Calcium 7.8 mg/dL (8.7-10.4); Chloride 102 mmol/L (98-107); Potassium 3.3 mmol/L (3.5-5.1); Sodium 133 mmol/L (136-145)
[2023-03-07 06:14] LABS: Anion Gap 5.1 (5-15); Carbon Dioxide 25.9 mmol/L (20-30)
[2023-03-07 06:19] LABS: Glucose 116 mg/dL (74-106)
[2023-03-07 07:58] LABS: BUN/Creatinine Ratio 9.6 (10.0-20.0); Blood Urea Nitrogen < 5 mg/dL (9-23)
[2023-03-07 08:14] LABS: Basophils # (auto) 0 10 ^3/uL (0-0.2); Basophils % (auto) 0.2 % (0.0-2.0); Eosinophils # (auto) 0.1 10 ^3/uL (0-0.8); Eosinophils % (auto) 2.1 % (0.0-7.0); Hematocrit 37.1 % (36.0-46.0); Hemoglobin 12.2 g/dL (12.2-16.2); Lymphocytes # (auto) 0.9 10 ^3/uL (0.4-5.4); Lymphocytes % (auto) 14.1 % (10.0-50.0); Mean Corpuscular Hemoglobin 27.6 pg (28.0-32.0); Mean Corpuscular Hgb Conc. 32.8 g/dL (32.0-36.0); Mean Corpuscular Volume 84.4 fL (80.0-100.0); Monocytes # (auto) 0.7 10 ^3/uL (0-1.3); Monocytes % (auto) 11.8 % (0.0-12.0); Neutrophils # (auto) 4.4 10 ^3/uL (1.6-8.6); Neutrophils % (auto) 71.8 % (37.0-80.0); Nucleated Red Blood Cells % 0.1 %; Red Cell Distribution Width 14.9 % (11.8-14.3); White Blood Cell 6.2 10^3/uL (4.4-10.8)
[2023-03-07] MEDS: ENOXAPARIN SOD 40 MG/0.4 ML SYRINGE SC SCH (09:11)
[2023-03-07] MEDS: BUDESONIDE (INHALATION) 0.5 MG/2 ML NEB NEB SCH ×2 (09:50→19:09)
[2023-03-07] MEDS: ALBUTEROL SULF 2.5 MG/0.5ML(0.5%) NEB SOLN NEB PRN (09:53)
[2023-03-07] MEDS: ONDANSETRON HCL 4 MG/2 ML VIAL IV PRN (13:53)
[2023-03-07] MEDS: MEPERIDINE HCL (25 MG/ML) 1ML VIAL IM PRN (13:57)
[2023-03-07] MEDS ORDERED: POTASSIUM CHL 20MEQ/100ML 100 ML IV ONE (17:45)
[2023-03-08] VITALS (13 sets, daily range): BP systolic 126–142; BP diastolic 66–75; PULSE 64–78; RESP 14–20; TEMP 98.2–98.7; O2SAT 94–100
[2023-03-08] MEDS: ONDANSETRON HCL 4 MG/2 ML VIAL IV PRN (01:38)
[2023-03-08] MEDS: D5W/SOD CHLO 0.9% 1,000 ML IV SCH ×2 (03:30→09:31)
[2023-03-08] MEDS: ceFAZolin 1GM/50ML 50 ML IV SCH ×3 (06:24→21:26)
[2023-03-08] MEDS: IPRATROPIUM BROM 0.5 MG/2.5ML INH SOL NEB PRN (07:22)
[2023-03-08] MEDS: ALBUTEROL SULF 2.5 MG/0.5ML(0.5%) NEB SOLN NEB PRN (07:23)
[2023-03-08] MEDS: BUDESONIDE (INHALATION) 0.5 MG/2 ML NEB NEB SCH ×2 (07:23→22:42)
[2023-03-08] MEDS: ENOXAPARIN SOD 40 MG/0.4 ML SYRINGE SC SCH (09:33)
[2023-03-08] MEDS: LORazepam 2MG/ML-1ML VIAL IV PRN ×2 (09:33→21:27)
[2023-03-09] VITALS (8 sets, daily range): BP systolic 133–153; BP diastolic 64–83; PULSE 61–89; RESP 16–20; TEMP 97.7–99.2; O2SAT 94–100
[2023-03-09] MEDS: ceFAZolin 1GM/50ML 50 ML IV SCH (04:57)
[2023-03-09] MEDS: D5W/SOD CHLO 0.9% 1,000 ML IV SCH ×2 (05:37→09:30)
[2023-03-09] MEDS: BUDESONIDE (INHALATION) 0.5 MG/2 ML NEB NEB SCH ×2 (05:57→22:00)
[2023-03-09] MEDS: IPRATROPIUM BROM 0.5 MG/2.5ML INH SOL NEB PRN (05:57)
[2023-03-09] MEDS: ALBUTEROL SULF 2.5 MG/0.5ML(0.5%) NEB SOLN NEB PRN (05:57)
[2023-03-09 06:14] LABS: Chloride 100 mmol/L (98-107); Sodium 134 mmol/L (136-145)
[2023-03-09 06:15] LABS: Anion Gap 4.3 (5-15); Calcium 8.1 mg/dL (8.5-10.1); Carbon Dioxide 29.7 mmol/L (20-30)
[2023-03-09] MEDS: ONDANSETRON HCL 4 MG/2 ML VIAL IV PRN ×2 (06:16→21:18)
[2023-03-09 06:20] LABS: Glucose 100 mg/dL (74-106)
[2023-03-09] MEDS: MEPERIDINE HCL (25 MG/ML) 1ML VIAL IM PRN (06:20)
[2023-03-09 06:22] LABS: BUN/Creatinine Ratio 9.4 (10.0-20.0); Blood Urea Nitrogen < 5 mg/dL (9-23)
[2023-03-09 06:26] LABS: Potassium 2.9 mmol/L (3.5-5.1)
[2023-03-09 06:42] LABS: Basophils # (auto) 0 10 ^3/uL (0-0.2); Basophils % (auto) 0.2 % (0.0-2.0); Eosinophils # (auto) 0.2 10 ^3/uL (0-0.8); Eosinophils % (auto) 2.7 % (0.0-7.0); Hematocrit 35.8 % (36.0-46.0); Hemoglobin 12.1 g/dL (12.2-16.2); Lymphocytes # (auto) 0.9 10 ^3/uL (0.4-5.4); Mean Corpuscular Hemoglobin 28.7 pg (28.0-32.0); Mean Corpuscular Hgb Conc. 33.9 g/dL (32.0-36.0); Mean Corpuscular Volume 84.5 fL (80.0-100.0); Monocytes # (auto) 0.8 10 ^3/uL (0-1.3); Monocytes % (auto) 13.3 % (0.0-12.0); Neutrophils # (auto) 3.9 10 ^3/uL (1.6-8.6); Neutrophils % (auto) 67.8 % (37.0-80.0); Nucleated Red Blood Cells % 0.1 %; Red Blood Cells 4.24 10^6/uL (4.0-5.20); Red Cell Distribution Width 14.7 % (11.8-14.3); White Blood Cell 5.8 10^3/uL (4.4-10.8)
[2023-03-09] MEDS ORDERED: POTASSIUM CHL 20MEQ/100ML 100 ML IV ONE (06:45)
[2023-03-09] MEDS: ENOXAPARIN SOD 40 MG/0.4 ML SYRINGE SC SCH (09:42)
[2023-03-09] MEDS ORDERED: POTASSIUM CHLORIDE 40 MEQ in SOD CHL 0.45% 1,000 ML IV SCH (12:30)
[2023-03-09] MEDS: LORazepam 2MG/ML-1ML VIAL IV PRN (22:25)
[2023-03-10] VITALS (11 sets, daily range): BP systolic 123–136; BP diastolic 66–81; PULSE 60–85; RESP 14–18; TEMP 97.6–99; O2SAT 94–100
[2023-03-10] MEDS: ONDANSETRON HCL 4 MG/2 ML VIAL IV PRN (05:12)
[2023-03-10] MEDS: MEPERIDINE HCL (25 MG/ML) 1ML VIAL IM PRN (06:05)
[2023-03-10 06:23] LABS: Chloride 99 mmol/L (98-107); Potassium 3.5 mmol/L (3.5-5.1); Sodium 132 mmol/L (136-145)
[2023-03-10 06:24] LABS: Anion Gap 6.7 (5-15); Carbon Dioxide 26.3 mmol/L (20-30)
[2023-03-10 06:25] LABS: Calcium 8.6 mg/dL (8.7-10.4)
[2023-03-10 06:27] LABS: Basophils # (auto) 0 10 ^3/uL (0-0.2); Basophils % (auto) 0.3 % (0.0-2.0); Eosinophils # (auto) 0.1 10 ^3/uL (0-0.8); Eosinophils % (auto) 2.2 % (0.0-7.0); Hematocrit 37.8 % (36.0-46.0); Hemoglobin 12.6 g/dL (12.2-16.2); Lymphocytes # (auto) 0.9 10 ^3/uL (0.4-5.4); Lymphocytes % (auto) 14.2 % (10.0-50.0); Mean Corpuscular Hgb Conc. 33.4 g/dL (32.0-36.0); Mean Corpuscular Volume 83.6 fL (80.0-100.0); Monocytes # (auto) 0.9 10 ^3/uL (0-1.3); Monocytes % (auto) 13.6 % (0.0-12.0); Neutrophils # (auto) 4.5 10 ^3/uL (1.6-8.6); Neutrophils % (auto) 69.7 % (37.0-80.0); Red Blood Cells 4.52 10^6/uL (4.0-5.20); Red Cell Distribution Width 14.9 % (11.8-14.3); White Blood Cell 6.5 10^3/uL (4.4-10.8)
[2023-03-10 06:30] LABS: Glucose 92 mg/dL (74-106)
[2023-03-10 07:56] LABS: BUN/Creatinine Ratio 10.6 (10.0-20.0); Blood Urea Nitrogen < 5 mg/dL (9-23)
[2023-03-10] MEDS: ENOXAPARIN SOD 40 MG/0.4 ML SYRINGE SC SCH (08:29)
[2023-03-10] MEDS: BUDESONIDE (INHALATION) 0.5 MG/2 ML NEB NEB SCH ×2 (10:02→19:13)
[2023-03-10] MEDS ORDERED: CLINIMIX PER PHARMACY 0 ML IV SCH (10:30)
[2023-03-10 12:11] LABS: Magnesium 1.8 mg/dL (1.6-2.6)
[2023-03-10 12:12] LABS: Phosphorus 2.1 mg/dL (2.4-5.1)
[2023-03-10] MEDS: METOCLOPRAMIDE HCL 5MG/ml INJ 2ml VIAL IV SCH ×2 (13:07→21:05)
[2023-03-10] MEDS ORDERED: POTASSIUM PHOSPHATE 22 MEQ in SODIUM CHL 0.9% 100 ML IV ONE (16:00)
[2023-03-10] MEDS ORDERED: MAGNESIUM SULFATE 1GM/100ML 100 ML IV ONE ×2 (16:00→16:34)
[2023-03-10] MEDS: IPRATROPIUM BROM 0.5 MG/2.5ML INH SOL NEB PRN (19:13)
[2023-03-10] MEDS: ALBUTEROL SULF 2.5 MG/0.5ML(0.5%) NEB SOLN NEB PRN (19:13)
[2023-03-10] MEDS: AMINO ACID INFUSION IN D10W 1,000 ML IV NR (21:05)
[2023-03-11] VITALS (11 sets, daily range): BP systolic 134–170; BP diastolic 61–79; PULSE 61–98; RESP 16–18; TEMP 97.4–98.6; O2SAT 93–100
[2023-03-11] MEDS ORDERED: DEXTROSE (50%) 50ML SYRG IV SCH
[2023-03-11] MEDS: ACCU-CHEK COMFORT CURVE STRIP VI SCH ×4 (00:11→18:07)
[2023-03-11] MEDS: METOCLOPRAMIDE HCL 5MG/ml INJ 2ml VIAL IV SCH ×3 (05:20→21:48)
[2023-03-11] MEDS: InsuLIN REG 1unit/0.01ml Soln (100units/ml) SC SCH ×4 (05:23→18:34)
[2023-03-11 06:23] LABS: Alanine Aminotransferase 33 U/L (7-40); Albumin 3.5 g/dL (3.2-4.8); Alkaline Phosphatase 68 U/L (46-116); Anion Gap 6.5 (5-15); Aspartate Aminotransferase 31 U/L (13-40); Blood Urea Nitrogen 9 mg/dL (9-23); Calcium 8.2 mg/dL (8.5-10.1); Carbon Dioxide 27.5 mmol/L (20-30); Chloride 99 mmol/L (98-107); Glucose 113 mg/dL (74-106); Magnesium 2.1 mg/dL (1.6-2.6); Potassium 3.4 mmol/L (3.5-5.1); Sodium 133 mmol/L (136-145)
[2023-03-11 06:24] LABS: Bilirubin, Total 0.4 mg/dL (0.2-1.0); Phosphorus 3.1 mg/dL (2.4-5.1); Total Protein 5.7 g/dL (5.7-8.2)
[2023-03-11] MEDS: ENOXAPARIN SOD 40 MG/0.4 ML SYRINGE SC SCH (08:41)
[2023-03-11] MEDS: BUDESONIDE (INHALATION) 0.5 MG/2 ML NEB NEB SCH ×2 (10:04→19:23)
[2023-03-11] MEDS ORDERED: POTASSIUM CHL 20MEQ/100ML 100 ML IV ONE (12:00)
[2023-03-11] MEDS: LORazepam 2MG/ML-1ML VIAL IV PRN (18:07)
[2023-03-11] MEDS: IPRATROPIUM BROM 0.5 MG/2.5ML INH SOL NEB PRN (19:22)
[2023-03-11] MEDS: ALBUTEROL SULF 2.5 MG/0.5ML(0.5%) NEB SOLN NEB PRN (19:22)
[2023-03-12] VITALS (10 sets, daily range): BP systolic 126–153; BP diastolic 65–83; PULSE 70–91; RESP 14–20; TEMP 97.7–98.5; O2SAT 92–99
[2023-03-12] MEDS: METOCLOPRAMIDE HCL 5MG/ml INJ 2ml VIAL IV SCH ×3 (05:56→22:27)
[2023-03-12] MEDS: InsuLIN REG 1unit/0.01ml Soln (100units/ml) SC SCH ×2 (06:00)
[2023-03-12] MEDS: ACCU-CHEK COMFORT CURVE STRIP VI SCH ×2 (06:09)
[2023-03-12 06:52] LABS: Potassium 3.5 mmol/L (3.5-5.1)
[2023-03-12 06:53] LABS: Calcium 8.7 mg/dL (8.7-10.4)
[2023-03-12 06:58] LABS: Albumin 3.7 g/dL (3.2-4.8)
[2023-03-12 06:59] LABS: BUN/Creatinine Ratio 10.2 (10.0-20.0)
[2023-03-12 07:01] LABS: Phosphorus 3.1 mg/dL (2.4-5.1)
[2023-03-12] MEDS: ALBUTEROL SULF 2.5 MG/0.5ML(0.5%) NEB SOLN NEB PRN ×2 (09:21→18:28)
[2023-03-12] MEDS: IPRATROPIUM BROM 0.5 MG/2.5ML INH SOL NEB PRN (09:21)
[2023-03-12] MEDS: BUDESONIDE (INHALATION) 0.5 MG/2 ML NEB NEB SCH ×2 (09:21→18:28)
[2023-03-12] MEDS: ENOXAPARIN SOD 40 MG/0.4 ML SYRINGE SC SCH (11:52)
[2023-03-13] VITALS (11 sets, daily range): BP systolic 128–144; BP diastolic 56–79; PULSE 67–80; RESP 16–22; TEMP 97.7–98.5; O2SAT 90–97
[2023-03-13] MEDS: METOCLOPRAMIDE HCL 5MG/ml INJ 2ml VIAL IV SCH ×3 (05:59→22:00)
[2023-03-13] MEDS: AMINO ACID INFUSION IN D10W 1,000 ML IV NR (08:07)
[2023-03-13] MEDS: BUDESONIDE (INHALATION) 0.5 MG/2 ML NEB NEB SCH ×2 (08:21→19:33)
[2023-03-13] MEDS: ALBUTEROL SULF 2.5 MG/0.5ML(0.5%) NEB SOLN NEB PRN ×2 (08:22→19:33)
[2023-03-13] MEDS: ENOXAPARIN SOD 40 MG/0.4 ML SYRINGE SC SCH (10:03)
[2023-03-13] MEDS: IPRATROPIUM BROM 0.5 MG/2.5ML INH SOL NEB PRN (19:33)
[2023-03-13] MEDS: LORazepam 2MG/ML-1ML VIAL IV PRN (20:12)
[2023-03-13] MEDS: DOCUSATE SOD 100 MG CAP PO SCH (22:00)
[2023-03-14] VITALS (12 sets, daily range): BP systolic 107–151; BP diastolic 47–71; PULSE 67–85; RESP 14–20; TEMP 36.6; O2SAT 94–99
[2023-03-14] MEDS: METOCLOPRAMIDE HCL 5MG/ml INJ 2ml VIAL IV SCH ×3 (06:07→21:09)
[2023-03-14] MEDS: BUDESONIDE (INHALATION) 0.5 MG/2 ML NEB NEB SCH ×2 (10:02→19:20)
[2023-03-14] MEDS: DOCUSATE SOD 100 MG CAP PO SCH ×2 (10:34→21:09)
[2023-03-14] MEDS: ENOXAPARIN SOD 40 MG/0.4 ML SYRINGE SC SCH (10:34)
[2023-03-14] MEDS: Ensure Enlive Strawberry 8oz Bottle PO SCH ×2 (13:58→18:25)
[2023-03-14] MEDS: ALBUTEROL SULF 2.5 MG/0.5ML(0.5%) NEB SOLN NEB PRN (19:20)
[2023-03-15] VITALS (9 sets, daily range): BP systolic 103–119; BP diastolic 53–77; PULSE 68–78; RESP 16–20; TEMP 98–99.1; O2SAT 92–99
[2023-03-15 06:08] LABS: Basophils # (auto) 0 10 ^3/uL (0-0.2); Basophils % (auto) 0.5 % (0.0-2.0); Eosinophils # (auto) 0.2 10 ^3/uL (0-0.8); Eosinophils % (auto) 3.4 % (0.0-7.0); Hematocrit 36.5 % (36.0-46.0); Hemoglobin 12.2 g/dL (12.2-16.2); Lymphocytes # (auto) 1.3 10 ^3/uL (0.4-5.4); Mean Corpuscular Hgb Conc. 33.5 g/dL (32.0-36.0); Mean Corpuscular Volume 83.7 fL (80.0-100.0); Monocytes # (auto) 0.6 10 ^3/uL (0-1.3); Monocytes % (auto) 8.5 % (0.0-12.0); Neutrophils # (auto) 4.6 10 ^3/uL (1.6-8.6); Neutrophils % (auto) 68.6 % (37.0-80.0); Nucleated Red Blood Cells % 0.1 %; Red Blood Cells 4.36 10^6/uL (4.0-5.20); Red Cell Distribution Width 14.7 % (11.8-14.3); White Blood Cell 6.8 10^3/uL (4.4-10.8)
[2023-03-15 06:17] LABS: Chloride 100 mmol/L (98-107); Potassium 3.4 mmol/L (3.5-5.1); Sodium 134 mmol/L (136-145)
[2023-03-15 06:19] LABS: Calcium 8.6 mg/dL (8.5-10.1)
[2023-03-15] MEDS: METOCLOPRAMIDE HCL 5MG/ml INJ 2ml VIAL IV SCH ×3 (06:19→21:36)
[2023-03-15 06:23] LABS: Blood Urea Nitrogen 10 mg/dL (9-23); Glucose 110 mg/dL (74-106)
[2023-03-15] MEDS: BUDESONIDE (INHALATION) 0.5 MG/2 ML NEB NEB SCH ×3 (06:50→22:00)
[2023-03-15] MEDS: IPRATROPIUM BROM 0.5 MG/2.5ML INH SOL NEB PRN (06:50)
[2023-03-15] MEDS: ALBUTEROL SULF 2.5 MG/0.5ML(0.5%) NEB SOLN NEB PRN ×2 (06:50→18:49)
[2023-03-15 07:24] LABS: BUN/Creatinine Ratio 16.4 (10.0-20.0)
[2023-03-15] MEDS: Ensure Enlive Strawberry 8oz Bottle PO SCH ×3 (08:00→18:07)
[2023-03-15] MEDS: ENOXAPARIN SOD 40 MG/0.4 ML SYRINGE SC SCH (10:46)
[2023-03-15] MEDS: DOCUSATE SOD 100 MG CAP PO SCH ×2 (10:46→21:36)
[2023-03-15] MEDS ORDERED: POTASSIUM EFFERVESENT TAB 25 MEQ PO ONE (11:45)
[2023-03-15] MEDS: LACTULOSE 20Gm/30ML SOLN PO SCH ×2 (15:46→21:36)
[2023-03-16] VITALS (12 sets, daily range): BP systolic 106–130; BP diastolic 53–70; PULSE 61–82; RESP 16–19; TEMP 98.1–98.7; O2SAT 92–100
[2023-03-16] MEDS: ALBUTEROL SULF 2.5 MG/0.5ML(0.5%) NEB SOLN NEB PRN ×2 (04:09→07:40)
[2023-03-16] MEDS: IPRATROPIUM BROM 0.5 MG/2.5ML INH SOL NEB PRN ×2 (04:09→07:40)
[2023-03-16] MEDS: METOCLOPRAMIDE HCL 5MG/ml INJ 2ml VIAL IV SCH ×4 (06:35→22:00)
[2023-03-16] MEDS: BUDESONIDE (INHALATION) 0.5 MG/2 ML NEB NEB SCH ×2 (07:40→22:20)
[2023-03-16] MEDS ORDERED: DOCU-94 PO (11:44)
[2023-03-16] MEDS: LACTULOSE 20Gm/30ML SOLN PO SCH ×2 (11:50→21:33)
[2023-03-16] MEDS: ENOXAPARIN SOD 40 MG/0.4 ML SYRINGE SC SCH (11:50)
[2023-03-16] MEDS: Ensure Enlive Strawberry 8oz Bottle PO SCH ×3 (11:50→18:00)
[2023-03-16] MEDS: DOCUSATE SOD 100 MG CAP PO SCH ×2 (11:50→21:33)
[2023-03-16] MEDS ORDERED: LORA-1121 PO (16:14)
[2023-03-16] MEDS ORDERED: LORazepam 0.5 MG TAB PO PRN (18:00)
[2023-03-17] VITALS (11 sets, daily range): BP systolic 101–119; BP diastolic 48–67; PULSE 60–78; RESP 15–18; TEMP 36.8; O2SAT 94–100
[2023-03-17] MEDS: METOCLOPRAMIDE HCL 5MG/ml INJ 2ml VIAL IV SCH ×2 (06:00→14:00)
[2023-03-17] MEDS: Ensure Enlive Strawberry 8oz Bottle PO SCH ×2 (08:00→12:00)
[2023-03-17] MEDS: ALBUTEROL SULF 2.5 MG/0.5ML(0.5%) NEB SOLN NEB PRN (09:58)
[2023-03-17] MEDS: BUDESONIDE (INHALATION) 0.5 MG/2 ML NEB NEB SCH (09:58)
[2023-03-17] MEDS: IPRATROPIUM BROM 0.5 MG/2.5ML INH SOL NEB PRN (09:58)
[2023-03-17] MEDS: LACTULOSE 20Gm/30ML SOLN PO SCH (10:10)
[2023-03-17] MEDS: ENOXAPARIN SOD 40 MG/0.4 ML SYRINGE SC SCH (10:11)
[2023-03-17] MEDS: DOCUSATE SOD 100 MG CAP PO SCH (10:11)
== END 2023-03-17 18:30 | disposition home or self-care (01) | DRG 331 ==
LOC: ER 21:12 → OVERFLOW 02-27 02:07 → CENTRAL 02-27 11:44
PROVIDERS: ADMIT Nurse Practitioner Family; ATTEND Nurse Practitioner Acute Care
PROC: 0D9670Z Drainage of Stomach with Drainage Device, Via Natural or Artificial Opening (ICD-10-PCS; 2023-02-27)
PROC: 0DN80ZZ Release Small Intestine, Open Approach (ICD-10-PCS; 2023-03-05)
PROC: 0DT80ZZ Resection of Small Intestine, Open Approach (ICD-10-PCS; principal; 2023-03-05 08:43)
DX: K56.50 Intestinal adhesions [bands], unspecified as to partial versus complete obstruction (principal); J43.9 Emphysema, unspecified; F32.A Depression, unspecified; I10 Essential (primary) hypertension; E87.6 Hypokalemia; F41.9 Anxiety disorder, unspecified; K59.00 Constipation, unspecified; E78.5 Hyperlipidemia, unspecified; Z90.49 Acquired absence of other specified parts of digestive tract; Z83.3 Family history of diabetes mellitus; Z82.49 Family history of ischemic heart disease and other diseases of the circulatory system; Z80.3 Family history of malignant neoplasm of breast; Z80.0 Family history of malignant neoplasm of digestive organs; Z85.9 Personal history of malignant neoplasm, unspecified; Z88.5 Allergy status to narcotic agent; Z91.013 Allergy to seafood
CPT/HCPCS: 36415; 71045; 71260; 74018; 74177; 74250; 80048; 80053; 80069; 81001; 82962; 83690; 83735; 84100; 84443; 84484; 85025; 85610; 85730; 86850; 86900; 86901; 87081; 93005; 94640; 96365; 96375; 97110; 97116; 97163; 97530; G0378; J0690; J1885; J2250; J2405; J2704; J3480; J3490; J7042

== ENCOUNTER 2024-05-21 13:05 | Emergency (ER) | payer OTHER ==
[~2024-05-21] VITALS: Ht 154.9 cm; Wt 52.2 kg
[~2024-05-21 13:05] MED LIST changes: +CYAN500L4 PO; +DOCU-94 PO; +LORA-1121 PO; +LOSA-535 PO
--- NOTE | 2024-05-21 14:43 | ED.PDOC ---
History of Present Illness HPI Comments 73Y F with PMHx HTN, HLD, angina, murmur, and thyroid disease presents to ED via EMS for chief complaint fall injury. Pt states she was changing pants in bathroom when she slipped on rug and fell backwards onto walk-in shower. Pt states she hit her head, neck, back, and shoulder. Pt denies headache, tingling, and numbness. Pt did not have any pain before the fall. Pt states rt arm is bandaged from cuts. No LOC. Pt is not on blood thinners. Chief Complaint: Fall Injury Time Seen by MD: 13:59 Primary Care Provider: STEPHENIE Reviewed Notes: Medications, Allergies Allergies: Coded Allergies: Codeine (Verified Allergy, Unknown, 01/12/17) Fish Allergy (Verified Allergy, Unknown, 10/10/20) Home Meds Active Scripts Baclofen (Baclofen) 10 Mg Tab, 10 MG PO TID, #14 TAB Prov:AKANKSHA MOLINA MD 05/21/24 Lorazepam (ATIVAN TABLET) 0.5 Mg Tb, 0.5 MG PO BIDPRN PRN for 5 Days, #10 TAB Prov:ADRIANA PEÑA RETURNED MATERIALS INSPECTOR 03/16/23 Docusate Sodium (Colace) 100 Mg Cap, 1 CAP PO DAILY for 14 Days, #30 CAP Prov:ADRIANA PEÑA RETURNED MATERIALS INSPECTOR 03/16/23 Atorvastatin Calcium (ATORVASTATIN CALCIUM) 20 Mg Tab, 1 TAB PO DAILY, #30 TAB Prov:HAILY WETZEL Pharmacist 10/19/20 Reported Medications Cyanocobalamin (Vitamin B 12) 500 Mcg Jay, 1000 MCG PO DAILY, JAY 02/27/23 Losartan Potassium (Losartan Potassium) 100 Mg Tab, 100 MG PO DAILY for 30 Days, MG 02/27/23 Cholecalciferol (Vitamin D) 1,000 Unit Tab, 1000 UNIT PO DAILY 10/19/20 Alprazolam (Xanax) 0.5 Mg Tb, 0.5 TAB PO PRN PRN for ANXIETY 10/19/20 Fluticasone-Salmeterol (Advair Hfa) 45 Aer, 1 PUFF IN DAILY 10/19/20 Albuterol Sulfate (VENTOLIN MDI) 90 Mcg Ih, 2 PUFF IN Q6HP 10/19/20 Levothyroxine Sodium (Levothyroxine Sodium) 75 Mcg Tab, 1 TAB PO QAM 10/19/20 Lisinopril (Lisinopril) 10 Mg Tab, 10 MG PO DAILY for 30 Days 10/09/20 Information Source: Patient Mode of Arrival: EMS Severity: Moderate Timing: Hours Duration: Since onset Past Medical History PAST MEDICAL HISTORY: Anxiety, Asthma, Cancer, High Lipids, HTN, Thyroid Surgical History: Denies all surgeries PERSONAL COACH History: No Pertinent PERSONAL COACH History Family History Family History: Family hx of DM, Family hx of heart oneal, Family hx of HTN Social History Smoker: Non-Smoker Alcohol: Occasionally Drugs: Marijuana Lives In: Home Constitutional: denies: chills, diaphoresis, fatigue, fever, malaise, sweats, weakness, others EENTM: denies: blurred vision, double vision, ear bleeding, ear discharge, ear drainage, ear pain, ear ringing, eye pain, eye redness, hearing loss, mouth pain, mouth swelling, nasal discharge, nose bleeding, nose congestion, nose pain, photophobia, tearing, throat pain, throat swelling, voice changes, others Respiratory: denies: cough, hemoptysis, orthopnea, SOB at rest, shortness of breath, SOB with excertion, stridor, wheezing, others Cardiovascular: denies: chest pain, dizzy spells, diaphoresis, Dyspnea on exertion, edema, irregular heart beat, left arm pain, lightheadedness, palpitations, PND, syncope, others Gastrointestinal: denies: abdomen distended, abdominal pain, blood streaked bowels, constipated, diarrhea, dysphagia, difficulty swallowing, hematemesis, melena, nausea, poor appetite, poor fluid intake, rectal bleeding, rectal pain, vomiting, others Genitourinary: denies: abnormal vagina bleeding, burning, dyspareunia, dysuria, flank pain, frequency, hematuria, incontinence, pain, , vagina discharge, urgency, others Neurological: denies: dizziness, fainting, headache, left sided numbness, left sided weakness, numbness, paresthesia, pre-existing deficit, right sided numbness, right sided weakness, seizure, speech problems, tingling, tremors, weakness, others Musculoskeletal: reports: back pain, neck pain; denies: gout, joint pain, joint swelling, muscle pain, muscle stiffness, others Integumetry: denies: bruises, change in color, change in hair/nails, dryness, laceration, lesions, lumps, rash, wounds, others Allergic/Immunocompromised: denies: Difficulty Healing, Frequent Infections, Hives, Itching, others Hematologic/Lymphatic: denies: anemia, blood clots, easy bleeding, easy bruising, swollen glands, others Endocrine: denies: excessive hunger, excessive sweating, excessive thirst, excessive urination, flushing, intolerance to cold, intolerance to heat, unexplained weight gain, unexplained weight loss, others Psychiatric: denies: anxiety, bipolar disorder, depression, hopeless, panic disorder, schizophrenia, sleepless, suicidal, others All Other Systems: Reviewed and Negative Physical Exam General Appearance: No Apparent Distress, Normal HEENT: Normal ENT Inspection, Pharynx Normal, TMs Normal Neck: Other (severe tenderness) Respiratory: Chest Non-Tender, Lungs Clear, No Accessory Muscle Use, No Res piratory Distress, Normal Breath Sounds Cardiovascular: No Edema, No JVD, No Murmur, No Gallop, Normal Peripheral Pulses, Regular Rate/Rhythm Breast Exam: Deferred Gastrointestinal: No Organomegaly, Non Tender, No Pulsatile Mass, Normal Bowel Sounds, Soft Genitalia: Deferred Pelvic: Deferred Rectal: Deferred Extremities: No calf tenderness, Normal capillary refill, Normal inspection, Normal range of motion, Non-tender, No pedal edema Musculoskeletal : Extremity Location: Back Apperance: Tenderness: Moderate (exquisite tenderness of C-spine and T- spine) Neurologic: Alert, data analysis manager II-XII nml as Tested, No Motor Deficits, Normal Affect, Normal Mood, No Sensory Deficits Cerebellar Function: Normal Reflexes: Normal Skin: Dry, Normal Color, Warm, Wounds, Other (she has a 2 cm skin to right forearm with adjacent hematoma) Lymphatic: No Adenopathy Was a procedure done? Was a procedure done?: No Differential Dx Considerations may include: Cervical neck fracture, thoracic spine fracture lumbar fracture forearm fracture X-Ray, Labs, Meds, VS Vital Signs Date Time Temp Pulse Resp B/P (MAP) Pulse Ox O2 Delivery O2 Flow Rate FiO2 05/21/24 16:01 67 18 99 Room Air 05/21/24 16:01 97.9 67 18 147/71 (96) 99 97.9 05/21/24 13:23 98.7 75 16 191/75 (113) 98 Current Medications Medications (Trade) Dose Ordered Sig/Jose Route Start Time Stop Time Status Last Admin Diphtheria/ Tetanus/Acell Pertussis (Boostrix T-Dap) 0.5 ml ONCE ONCE IM 05/21/24 15:45 05/21/24 15:46 DC 05/21/24 15:53 [place] [address] Ph: [phone] DIAGNOSTIC IMAGING Diagnostic Imaging Report : [id number] Signed PATIENT: RAYNA MOTTA ACCT: [id number] UNIT: [id number] : 1950 LOC: ER ROOM / BED: / AGE / SEX: 73 / F ADM STATUS: REG ER SERVICE 23 ORDERING PHYSICIAN: AKANKSHA MOLINA MD PROCEDURE(s): LS2CT - LS SPINE WO CONTRAST REASON: ro fracture ORDER NUMBER(s): [id number], ACCESSION NUMBER(s): [id number] [place] [address] Ph: [phone] DIAGNOSTIC IMAGING Diagnostic Imaging Report : [id number] Signed PATIENT: RAYNA MOTTA ACCT: [id number] UNIT: [id number] : 1950 LOC: ER ROOM / BED: / AGE / SEX: 73 / F ADM STATUS: REG ER SERVICE 23 ORDERING PHYSICIAN: AKANKSHA MOLINA MD PROCEDURE(s): LS2CT - LS SPINE WO CONTRAST REASON: ro fracture ORDER NUMBER(s): [id number], ACCESSION NUMBER(s): [id number] CT LS SPINE WO CONTRAST Date: 05/21/2024 02:40 PM History: ro fracture Comparison: CT ABD PELVIS WO CONTRAST on DOS: 10/19/20 TECHNIQUE: Multiple axial CT images of the lumbosacral spine were obtained using bone algorithm. Axial and coronal reformatting was done. Bone and soft tissue windows were reviewed. Radiation Dose Information: CT Dose: CTDI volume is 7.36 mGy. Dose-length product is 223.31 mGy*cm FINDINGS: No CT evidence of definite acute fracture, spinal dislocation, or significant appearing acute subluxation is seen. The visualized paraspinal soft tissues are grossly unremarkable. T12-L1 There is no evidence of central spinal canal or neuroforaminal stenosis. L1-L2 There is no evidence of central spinal canal or neuroforaminal stenosis. L2-L3 There is no evidence of central spinal canal or neuroforaminal stenosis. L3-L4 There is no evidence of central spinal canal or neuroforaminal stenosis. L4-L5 There is no evidence of central spinal canal or neuroforaminal stenosis. L5-S1 There is no evidence of central spinal canal or neuroforaminal stenosis. IMPRESSION: 1. No definite CT evidence of acute fracture or dislocation of the bony lumbar spine. 2. No central spinal canal stenosis 3. All CT scans at this medical facility are performed using dose modulation techniques as appropriate to a performed exam including the following: Automated exposure control was utilized; adjustment of the MA and/or KV according to patient size; and use of iterative reconstruction technique. HS:Y ATED BY: HECTOR JAMESON Jr., DO DICTATED DATE/TIME: 05/21/24 150 SIGNED BY: HECTOR JAMESON Jr., DO SIGNED DATE/TIME: 05/21/24 1506 CC: DICTATED BY: HECTOR JAMESON Jr., DO DICTATED DATE/TIME: 05/21/24 150 SIGNED BY: HECTOR JAMESON Jr., DO SIGNED DATE/TIME: 05/21/24 150 CC: [place] [address] Ph: [phone] DIAGNOSTIC IMAGING Diagnostic Imaging Report : [id number] Signed PATIENT: RAYNA MOTTA ACCT: [id number] UNIT: [id number] : 1950 LOC: ER ROOM / BED: / AGE / SEX: 73 / F ADM STATUS: REG ER SERVICE 1434 ORDERING PHYSICIAN: AKANKSHA MOLINA MD PROCEDURE(s): CS2 - CERVICAL WITHOUT CONTRAST REASON: POSSIBLE FRACTURE ORDER NUMBER(s): [id number], ACCESSION NUMBER(s): [id number] EXAM: CT CERVICAL WITHOUT CONTRAST HISTORY: POSSIBLE FRACTURE COMPARISON: HEAD WITHOUT CONTRAST on DOS: 4/9/21, CT ABD PELVIS WO CONTRAST on DOS: 10/19/20 CTDIvol 10.12 mGy, DLP 234.85 mGy*cm. TECHNIQUE: Multiple axial CT images of the spine were obtained using bone algori thm. Axial and coronal reformatting was done. Bone and soft tissue windows were reviewed. FINDINGS: No CT evidence of definite acute fracture, spinal dislocation, or significant appearing acute subluxation is seen. The visualized paraspinal soft tissues are grossly unremarkable. Scarring in the right lung apex. Multilevel degenerative changes of the spine. IMPRESSION: No definite CT evidence of acute fracture or dislocation of the bony cervical spine. ATED BY: DREW BROWN MD DICTATED DATE/TIME: 05/21/241513 SIGNED BY: DREW BROWN MD SIGNED DATE/TIME: 05/21/241513 CC: [place] [address] Ph: [phone] DIAGNOSTIC IMAGING Diagnostic Imaging Report : [id number] Signed PATIENT: RAYNA MOTTA ACCT: [id number] UNIT: [id number] : 1950 LOC: ER ROOM / BED: / AGE / SEX: 73 / F ADM STATUS: REG ER SERVICE 23 ORDERING PHYSICIAN: AKANKSHA MOLINA MD PROCEDURE(s): LS2CT - LS SPINE WO CONTRAST REASON: ro fracture ORDER NUMBER(s): [id number], ACCESSION NUMBER(s): [id number] [place] [address] Ph: [phone] DIAGNOSTIC IMAGING Diagnostic Imaging Report : [id number] Signed PATIENT: RAYNA MOTTA ACCT: [id number] UNIT: [id number] : 1950 LOC: ER ROOM / BED: / AGE / SEX: 73 / F ADM STATUS: REG ER SERVICE 23 ORDERING PHYSICIAN: AKANKSHA MOLINA MD PROCEDURE(s): LS2CT - LS SPINE WO CONTRAST REASON: ro fracture ORDER NUMBER(s): [id number], ACCESSION NUMBER(s): [id number] CT LS SPINE WO CONTRAST Date: 05/21/2024 02:40 PM History: ro fracture Comparison: CT ABD PELVIS WO CONTRAST on DOS: 10/19/20 TECHNIQUE: Multiple axial CT images of the lumbosacral spine were obtained using bone algorithm. Axial and coronal reformatting was done. Bone and soft tissue windows were reviewed. Radiation Dose Information: CT Dose: CTDI volume is 7.36 mGy. Dose-length product is 223.31 mGy*cm FINDINGS: No CT evidence of definite acute fracture, spinal dislocation, or significant appearing acute subluxation is seen. The visualized paraspinal soft tissues are grossly unremarkable. T12-L1 There is no evidence of central spinal canal or neuroforaminal stenosis. L1-L2 There is no evidence of central spinal canal or neuroforaminal stenosis. L2-L3 There is no evidence of central spinal canal or neuroforaminal stenosis. L3-L4 There is no evidence of central spinal canal or neuroforaminal stenosis. L4-L5 There is no evidence of central spinal canal or neuroforaminal stenosis. L5-S1 There is no evidence of central spinal canal or neuroforaminal stenosis. IMPRESSION: 1. No definite CT evidence of acute fracture or dislocation of the bony lumbar spine. 2. No central spinal canal stenosis 3. All CT scans at this medical facility are performed using dose modulation techniques as appropriate to a performed exam including the following: Automated exposure control was utilized; adjustment of the MA and/or KV according to patient size; and use of iterative reconstruction technique. HS:Y ATED BY: HECTOR JAMESON Jr., DO DICTATED DATE/TIME: 05/21/24 150 SIGNED BY: HECTOR JAMESON Jr., DO SIGNED DATE/TIME: 05/21/24 150 CC: DICTATED BY: HECTOR JAMESON Jr., DO DICTATED DATE/TIME: 05/21/241508 SIGNED BY: HECTOR JAMESON Jr., DO SIGNED DATE/TIME: 05/21/24 150 CC: [place] [address] Ph: [phone] DIAGNOSTIC IMAGING Diagnostic Imaging Report : [id number] Signed PATIENT: RAYNA MOTTA ACCT: [id number] UNIT: [id number] : 1950 LOC: ER ROOM / BED: / AGE / SEX: 73 / F ADM STATUS: REG ER SERVICE 1538 ORDERING PHYSICIAN: AKANKSHA MOLINA MD PROCEDURE(s): RFOR - R FOREARM XRAY REASON: ro fracture ORDER NUMBER(s): [id number], ACCESSION NUMBER(s): [id number] CLINICAL INDICATION: ro fracture TECHNIQUE: 3 radiographic views of the right radius and ulna were obtained. Comparison: None FINDINGS/IMPRESSION: There is no evidence of acute fracture or dislocation. Soft tissue injury over the mid ulna. No radiopaque foreign bodies. The visualized joint space is well maintained. The alignment is anatomical. There is no radiopaque foreign body. HS:Y ATED BY: HECTOR JAMESON Jr., DO DICTATED DATE/TIME: 05/21/241605 SIGNED BY: HECTOR JAMESON Jr., SIGNED DATE/TIME: 05/21/241605 CC: 73-year-old female presents here status post slip and fall. She reports neck pain and back pain. She has been placed in his cervical neck C-collar. On my evaluation she just diffuse tenderness to palpation to the cervical and thoracic spine. With some tenderness to the lumbar spine also. She also has a skin tear to her right forearm with some hematoma. X-ray has been done to the right forearm with no evidence of fracture. At this time the skin tear has been cleaned and dressed. Nursing staff is provided her with nonadhesive dressing at time of discharge. I did offer her suture placement but she refused. Tdap has been updated. I have also sent prescription for baclofen muscle relaxer to her pharmacy. Time of 1ST Reevaluation: 14:29 Reevaluation 1ST: Unchanged Patient Education/Counseling: Diagnosis, Treatment Family Education/Counseling: No Family Present Departure 1 Departure Time of Disposition: 16:30 Impression: Primary Impression: Fall (on) (from) unspecified stairs and steps, initial encounter Additional Impressions: Neck strain Qualified Codes: S16.1XXA - Strain of muscle, fascia and tendon at neck level, initial encounter Back sprain Skin tear Disposition: HOME / SELF CARE / HOMELESS Condition: Fair Additional Instructions: Follow up with the primary care physician in 2 3 days. e-Prescriptions Baclofen (Baclofen) 10 Mg Tab 10 MG PO TID, #14 TAB Prov: AKANKSHA MOLINA MD 05/21/24 Baclofen (Baclofen) 10 Mg Tab 10 MG PO TID, #14 TAB Prov: AKANKSHA MOLINA MD 05/21/24 Critical Care Note Critical Care Time?: No Stability Stability form required: No Heart Score Heart Score: Heart Score Response (Comments) Value History N/A 0 EKG N/A 0 Age N/A 0 Risk Factors N/A 0 Troponin N/A 0 Total 0 I personally scribed for AKANKSHA MOLINA MD ([email or web address]) on 05/21/24 at 14:43. Electronically submitted by Poppy Kwong ([email or web address]). AKANKSHA MOLINA MD May 21, 2024 14:43
--- NOTE | 2024-05-21 15:09 | DVH ---
[facility] [address] [facility] [address] Ph: [phone] DIAGNOSTIC IMAGING Diagnostic Imaging Report : [id number] Signed PATIENT: RAYNA MOTTA ACCT: [id number] UNIT: [id number] : 1950 LOC: ER ROOM / BED: / AGE / SEX: 73 / F ADM STATUS: REG ER SERVICE 1424 ORDERING PHYSICIAN: AKANKSHA MOLINA MD PROCEDURE(s): LS2CT - LS SPINE WO CONTRAST REASON: ro fracture ORDER NUMBER(s): [id number], ACCESSION NUMBER(s): [id number] CT LS SPINE WO CONTRAST Date: 05/21/2024 02:40 PM History: ro fracture Comparison: CT ABD PELVIS WO CONTRAST on DOS: 10/19/20 TECHNIQUE: Multiple axial CT images of the lumbosacral spine were obtained using bone algorithm. Axial and coronal reformatting was done. Bone and soft tissue windows were reviewed. Radiation Dose Information: CT Dose: CTDI volume is 7.36 mGy. Dose-length product is 223.31 mGy*cm FINDINGS: No CT evidence of definite acute fracture, spinal dislocation, or significant appearing acute subluxation is seen. The visualized paraspinal soft tissues are grossly unremarkable. T12-L1 There is no evidence of central spinal canal or neuroforaminal stenosis. L1-L2 There is no evidence of central spinal canal or neuroforaminal stenosis. L2-L3 There is no evidence of central spinal canal or neuroforaminal stenosis. L3-L4 There is no evidence of central spinal canal or neuroforaminal stenosis. L4-L5 There is no evidence of central spinal canal or neuroforaminal stenosis. L5-S1 There is no evidence of central spinal canal or neuroforaminal stenosis. IMPRESSION: 1. No definite CT evidence of acute fracture or dislocation of the bony lumbar spine. 2. No central spinal canal stenosis 3. All CT scans at this medical facility are performed using dose modulation techniques as appropriate to a performed exam including the following: Automated exposure control was utilized; adjustment of the MA and/or KV according to patient size; and use of iterative reconstruction technique. HS:Y ATED BY: HAILE PEREZ Jr., DO DICTATED DATE/TIME: 05/21/24 1506 SIGNED BY: HAILE PEREZ Jr., SIGNED DATE/TIME: 05/21/24 1506 CC:
--- NOTE | 2024-05-21 15:11 | DVH ---
EXAM: CT THORACIC SPINE WO CONTRAS INDICATION: ro fracture EXAM DATE: 05/21/2024 02:38 PM COMPARISON: CT ABD PELVIS WO CONTRAST on DOS: 10/19/20 TECHNIQUE: Multiple axial CT images of the thoracic and lumbar spine were obtained using bone algorit hm. Axial and coronal reformatting was done. Bone and soft tissue windows were reviewed. Radiation Dose Information: CT Dose: CTDI volume is 8.72 mGy. Dose-length product is 273.98 mGy*cm Findings: There is no evidence of an acute fracture or spondylolisthesis. The vertebral body heights are well-m aintained. No evidence of degenerative disc disease. No neuroforaminal narrowing. No spinal canal stenosis. There is a normal thoracic kyphosis and lumbar lordosis. The paraspinal soft tissues appear within no rmal limits. The visualized portions of the chest and abdomen are unremarkable. C7-T1: Normal T1-T2: Normal T2-T3: Normal T3-T4: Normal T4-T5: Normal T5-T6: Normal T6-T7: Normal T7-T8: Normal T8-T9: Normal T9-T10: Normal T10-T11: Normal T11-T12: Normal T12-L1: Normal L1-L2: Normal L2-L3: Normal L3-L4: Normal L4-L5: Normal L5-S1: Normal Impression: 1. Normal CT of the thoracolumbar spine.
--- NOTE | 2024-05-21 15:18 | DVH ---
EXAM: CT CERVICAL WITHOUT CONTRAST HISTORY: POSSIBLE FRACTURE COMPARISON: HEAD WITHOUT CONTRAST on DOS: 10/19/20, CT ABD PELVIS WO CONTRAST on DOS: 10/19/20 CTDIvol 10.12 mGy, DLP 234.85 mGy*cm. TECHNIQUE: Multiple axial CT images of the spine were obtained using bone algorithm. Axial and coron al reformatting was done. Bone and soft tissue windows were reviewed. FINDINGS: No CT evidence of definite acute fracture, spinal dislocation, or significant appearing acute subluxa tion is seen. The visualized paraspinal soft tissues are grossly unremarkable. Scarring in the right lung apex. Multilevel degenerative changes of the spine. IMPRESSION: No definite CT evidence of acute fracture or dislocation of the bony cervical spine.
[2024-05-21] MEDS ORDERED: BACL10TA PO (15:38)
[2024-05-21] MEDS: TETANUS-DIPTH-ACEL PERTUSSIS 0.5ML SYR Tdap IM ONE (15:53)
[2024-05-21 16:01] VITALS: BP 147/71; PULSE 67; RESP 18; TEMP 97.9; O2SAT 99
--- NOTE | 2024-05-21 16:08 | DVH ---
CLINICAL INDICATION: ro fracture TECHNIQUE: 3 radiographic views of the right radius and ulna were obtained. Comparison: None FINDINGS/IMPRESSION: There is no evidence of acute fracture or dislocation. Soft tissue injury over the mid ulna. No radiopaque foreign bodies. The visualized joint space is well maintained. The alignment is anatomical. There is no radiopaque foreign body. HS:Y
== END 2024-05-21 16:49 | disposition home or self-care (01) ==
LOC: EDBD 13:05 → ER 13:05
DX: S51.811A Laceration without foreign body of right forearm, initial encounter (principal); S16.1XXA Strain of muscle, fascia and tendon at neck level, initial encounter; W01.0XXA Fall on same level from slipping, tripping and stumbling without subsequent striking against object, initial encounter; I10 Essential (primary) hypertension; E07.9 Disorder of thyroid, unspecified; E78.5 Hyperlipidemia, unspecified; F41.9 Anxiety disorder, unspecified; J45.909 Unspecified asthma, uncomplicated; Z79.899 Other long term (current) drug therapy; Z98.890 Other specified postprocedural states; Z88.5 Allergy status to narcotic agent; Z88.8 Allergy status to other drugs, medicaments and biological substances
CPT/HCPCS: 72125; 72128; 72131; 73090; 90471; 90715